=== PATIENT | female | born 1935 | race Caucasian/White ===

== ENCOUNTER → 2019-05-31 11:50 | Outpatient (CLI) | payer MEDICARE, OTHER ==
[~2019-05-31 11:50] MED LIST: ALPHAGAN 0.2%5 ML EACH EYE; CO Q-10100 MG PO; CROMOLYN S20 MG/2 ML; GLUCOSAMINE HC500 MG PO; K-TAB10 MEQ PO; LASIX40 MG PO; MOBIC7.5 MG PO; OXYBUTYNIN CHLOR5 MG PO; PEPCID AC20 MG PO
[2019-06-20 18:01] VITALS: BMI 24.6
== END | disposition home or self-care (01) ==
LOC: D.US 11:30
PROVIDERS: ATTEND Nurse Practitioner Adult Health
DX: M79.89 Other specified soft tissue disorders (principal)

== ENCOUNTER 2019-06-20 13:26 | Inpatient (IN) | payer MEDICARE, OTHER ==
[~2019-06-20] VITALS: Ht 154.9 cm; Wt 59.3 kg
--- NOTE | ~2019-06-20 | HEMODYNAMI ---
PATIENT:BIJAN BOWSER MEDICAL RECORD: [id number] : 35 LOCATION:[facility] D.2126 ADMISSION DATE: 06/20/19 Generatedon:06/21/201910:35 Patient name: BIJAN BOWSER Patient #: [id number] SSN: : 1935 Date of study: 06/21/2019 Page: Of Hemodynamic Procedure Report Patient Data Patient Demographics Procedure consent was obtained First Name: BIJAN Gender: Female Last Name: MAGUE : 1935 Patient #: [id number] Age: 84 year(s) Race: Unknown Additional ID: [id number] Contact details Address: [address] [place] [address] [address] State: [place] City: [place] Zip code: [address] Admission Admission Data Admission Date: 06/20/2019 Admission Time: 15:53 Room #: D.2126 Height (in.): 61 BSA: 1.57 (m2) Height (cm.): 154.94 BMI: 24.29 (kg/m2) Weight (lbs.): 128.57 Weight (kg.): 58.32 Lab Results Lab Result Date: 06/21/2019 Lab Result Time: 0:00 Biochemistry Name Units Result Min Max BUN mg/dl 18 --(---*)-- 7 18 CK-MB ng/ml 3.7 --(----)*- 0 3.6 Creatinine mg/dl 1.5 --(----)-* 0.6 1.3 eGFR ml/min 35 *-(----)-- 90 120 NONAFRICAN Troponin l ng/ml 0.716 --(----)-* 0 0.06 CBC Name Units Result Min Max Hemoglobin g/dl 11.7 *-(----)-- 13.5 17.5 Platelets 10^3/l 226 --(-*--)-- 130 400 Coagulation Name Units Result Min Max INR units 1.07 --(--*-)-- 0.85 1.17 Procedure Procedure Types Cath Procedure Diagnostic Procedure C [facility] w/Coronaries Procedure Description Procedure Date Procedure Date: 06/21/2019 Procedure Start Time: 10:14 Procedure End Time: 10:33 Procedure Staff Name Function Emmanuel Olvera RT Monitor Kishan Chambers RN Nurse Fortino Eason MD Performing Physician Catherine Serrano RT Scrub Procedure Data Cath Procedure Fluoroscopy Diagnostic fluoroscopy Total fluoroscopy Time: 3.3 time: 3.3 min min Diagnostic fluoroscopy Total fluoroscopy dose: 235 dose: 235 mGy mGy Contrast Material Contrast Material Type Amount (ml) Isovue 370 35 Entry Location Entry Primary Successful Side Size Upsize Upsize Entry Closure Carias ccessful Closure Location (Fr) 1 (Fr) 2 (Fr) Remarks Device Remarks Radial Right 6 Fr Mechanical artery Short Compression Femoral Right 5 Fr Exoseal artery Estimated blood loss: 5 ml Diagnostic catheters Device Type Used For End Catheter Placement DIAGNOSTIC Hartley 110cm 5 Procedure Fr catheter ([id number]) MULTIPACK Pigtail 5 Fr Procedure catheter MULTIPACK JL 4.0 5Fr Procedure catheter MULTIPACK 3DRC 5Fr Procedure catheter Procedure Complications No complications Procedure Medications Medication Administration Route Dosage Oxygen NC 2 l/min Heparin Flush Bag added to field 2 bags (1000units/500ml NS) Lidocaine 2% added to field 20 0.9% NaCl I.V. 100 ml/hr Radial Cocktail added to field 1 syringe (Verapamil 2mg/Nitro 400mcg/Heparin 1500units) Fentanyl I.V. 50 mcg Versed I.V. 1 mg Radial Cocktail I.A. 1 syringe (Verapamil 2mg/Nitro 400mcg/Heparin 1500units) Hemodynamics Rest BSA: 1.57 (m2) HGB: 11.7 (g/dl) O2 Consumption: Estimated: 133.71 (ml/min) O2 Co nsumption indexed: Estimated:85.17 (ml/min/m) Heart Rate: 60 (bpm) Snapshots Pre Cath Intra NCS Post Cath Vital Signs Time Heart Resp SPO2 etCO2 NIBP (mmHg) Rhythm Pain Sedation Rate (ipm) (%) (mmHg) Status Level (bpm) 10:02:12 37 17 95 0 135/76(103) NSR 0 (11) 10(A) , No pain 10:14:19 34 17 96 0 95/45(68) NSR 0 (11) 10(A) , No pain 10:18:33 35 17 98 0 86/37(65) NSR 0 (11) 9(A) , No pain 10:22:47 34 17 95 0 73/37(65) NSR 0 (11) 9(A) , No pain 10:26:53 33 17 96 0 88/36(65) NSR 0 (11) 9(A) , No pain 10:31:05 31 17 96 0 94/34(66) NSR 0 (11) 9(A) , No pain Medications Time Medication Route Dose Verified Delivered Reason Notes Effectiveness by by 9:58:59 Oxygen NC 2 l/min Fortino Holley Per Jenaro Chambers RN physician 9:59:07 Heparin Flush added 2 bags Fortino Holley used for Bag to Jenaro Chambers RN procedure (1000units/500ml field NS) 9:59:34 Lidocaine 2% added 20ml Fortino Holley for local to vial Jenaro Chambers RN anesthetic field 9:59:47 0.9% NaCl I.V. 100 Fortino Holley Per ml/hr Jenaro Chambers RN physician 9:59:56 Radial Cocktail added 1 Fortino Holley used for (Verapamil to syringe Jenaro Chambers RN procedure 2mg/Nitro field 400mcg/Hepari 10:13:58 Fentanyl I.V. 50 mcg Fortino Holley for sedation Jenaro Chambers RN 10:14:04 Versed I.V. 1 mg Fortino Holley for sedation Jenaro Chambers RN 10:15:54 Radial Cocktail I.A. 1 Fortino Freitas for (Verapamil syringe Jenaro Eason MD vasodilation 2mg/Nitro 400mcg/Hepari Procedure Log Time Note 9:30:08 Kishan Chambers RN sent for patient. Start room use. 9:37:09 Time tracking: Call back (After hours or weekends) 9:37:14 Plan of Care:Hemodynamics will remain stable., Cardiac rhythm will remain stable., Comfort level will be maintained., Respiratory function will remain adequate., Patient/ family verbilizes understanding of procedure., Procedure tolerated without complication., Recovers from procedure without complications.. 9:42:19 Risk of Mortality: 3 9:42:23 Risk of blood transfusion: 5.6 9:42:26 Risk of ALVARO: 9.1 9:42:33 Patient Height : 61 inches 9:42:38 Patient Weight : 128.57 lbs 9::55 Lab Result : Hemoglobin 11.7 g/dl ::55 Lab Result : eGFR NONAFRICAN 35 ml/min ::55 Lab Result : INR 1.07 units ::55 Lab Result : Platelets 226 10^3/l ::55 Lab Result : Creatinine 1.5 mg/dl :: Lab Result : BUN 18 mg/dl :: Lab Result : Troponin l 0.716 ng/ml :: Lab Result : CK-MB 3.7 ng/ml 9:44:02 Lab results completed and on chart. 9:45:43 ACC Patient presents with Non-STEMI CCS Anginal Class 3--Marked limitation of physical activity, angina occurs with ordinary activity.. 9:45:48 Procedure Status Urgent Heart Cath (IP). 9:46:01 ACCPatient has been prescribed/administered the following anti-anginal medication within the last 2 weeks: None 9:46:09 Patient received from PCU to CCL 1 Alert and oriented. Tansferred to table in Supine position. 9:48:59 3b) 30-44 Moderately reduced kidney function. 9:49:13 Maximum allowable contrast dose (3.7 X eGFR X 0.75)97 ml. 9:58:59 Oxygen 2 l/min NC was administered by Kishan Chambers RN; Per physician; Verbal order read back and verified. 9:59:07 Heparin Flush Bag (1000units/500ml NS) 2 bags added to field was administered by Kishan Chambers RN; used for procedure; Verbal order read back and verified. 9:59:34 Lidocaine 2% 20ml vial added to field was administered by Kishan Chambers RN; for local anesthetic; Verbal order read back and verified. 9:59:47 0.9% NaCl 100 ml/hr I.V. was administered by Kishan Chambers RN; Per physician; Verbal order read back and verified. 9:59:56 Radial Cocktail (Verapamil 2mg/Nitro 400mcg/Heparin 1500units) 1 syringe added to field was administered by Kishan Chambers RN; used for procedure; Verbal order read back and verified. 10:01:02 Vital chart was started 10:07:36 Signed procedure consent form obtained from guardian. 10:07:42 Correct patient and procedure confirmed by team. 10:07:42 Warm blankets applied, and jhonatan hugger turned on for patient comfort. 10:07:43 ECG and BP/O2 sat monitors applied to patient. 10:07:46 Baseline sample Acquired. 10:07:50 Rhythm: 3rd degree heart block 10:07:51 Full Disclosure recording started 10:07:56 Pre-procedure instructions explained to patient. 10:07:56 H&P Date Dictated: 06/20/2019 Within 30 days and on chart.. 10:12:00 Physician arrived 10:12:06 Pt unable to answer due mental disability. 10:12:10 Family in patients room. 10:12:12 Patient NPO since Midnight. 10:12:17 Is the patient allergic to Iodine/contrast media? No. 10:12:20 Is patient on blood thinner?Yes 10:12:57 ACC The patient was administered the following blood thiners within the last 24 hours: ACCPlavix 10:13:00 Patient diabetic? Unknown. 10:13:06 Pre procedure: right dorsailis pedis pulse 1+ Palpable, but thready & weak; easily obliterated 10:13:16 Modified Calin's test Ulnar < 7 seconds 10:13:20 Patient pain scale 0/10 ?. 10:13:26 IV patent on arrival in left forearm with 0.9% NaCl at KVO. 10:13:30 Final Timeout: patient, procedure, and site verified with staff and physician. All members of the team are in agreement. 10:13:30 --------ALL STOP TIME OUT------ 10:13:33 Right Radial & Right Groin site verified by team. 10:13:37 Fire Safety Assessment: A--An alcohol-based skin anteseptic being used preoperatively., C--Open oxygen or nitrous oxide is being used., D--An ESU, laser, or fiber-optic light is being used. 10:13:41 Physical assessment completed. ASA score P 3 - A patient with severe systemic disease as per Fortino Eason MD. 10:13:46 Sedation plan: IV Moderate Sedation Medication:Versed, Fentanyl 10:13:58 Fentanyl 50 mcg I.V. was administered by Kishan Chambers RN; for sedation; Verbal order read back and verified. 10:14:04 Versed 1 mg I.V. was administered by Kishan Chambers RN; for sedation; Verbal order read back and verified. 10:14:28 Use device set Radial Dx or PCI 10:14:30 ACIST Hand Control (40288) opened to sterile field. 10:14:30 Tegaderm 4 x 4 (1626W) opened to sterile field. 10:14:31 ACIST Manifold (70814) opened to sterile field. 10:14:32 Medline Cath Pack (QBLE94060) opened to sterile field. 10:14:32 ACIST Syringe (41812) opened to sterile field. 10:14:33 MBrace Wrist Support (146952453) opened to sterile field. 10:14:33 Bag Decanter (2002S) opened to sterile field. 10:14:35 EMERALD Guide Wire (085-315) opened to sterile field. 10:14:36 SHEATH 6FR RAIN (0249493) opened to sterile field. 10:14:43 Procedure started. 10:14:56 Local anesthetic to right radial artery with Lidocaine 2% by Fortino Eason MD.INITIAL ACCESS ONLY 10:15:13 A 6 Fr Short sheath was inserted into the Right Radial artery 10:15:19 A DIAGNOSTIC Hartley 110cm 5 Fr catheter (849976) was advanced over the wire and used for Procedure. 10:15:54 Radial Cocktail (Verapamil 2mg/Nitro 400mcg/Heparin 1500units) 1 syringe I.A. was administered by Fortino Eason MD; for vasodilation; Verbal order read back and verified. 10:16:00 IV Extension Set opened to sterile field. 10:18:18 Catheter removed. Unable to advance catheter into ascending Aorta due to pt anatomy. Moving to Femoral approach. 10:18:33 Use device set Multipack Set 10:18:35 DIAGNOSTIC Multipack 5Fr catheter set (YY7039) opened to sterile field. 10:18:35 SHEATH 5FR Randolph (XON671) opened to sterile field. 10:18:58 Local anesthetic to right femoral artery with Lidocaine 2% by Fortino Eason MD.ADDITIONAL ACCESS 10:19:54 A 5 Fr sheath was inserted into the Right Femoral artery 10:20:26 A MULTIPACK Pigtail 5 Fr catheter was advanced over the wire and used for Procedure. 10:20:56 LV gram done using JETT 10:21:02 EF : 25 % 10:21:07 Injector settings: Ml/sec: 10, Volume: 20, 10:21:11 Catheter removed. 10:21:16 A MULTIPACK JL 4.0 5Fr catheter was advanced over the wire and used for Procedure. 10:21:51 LCA angiography performed. 10:22:29 Catheter removed. 10:22:33 A MULTIPACK 3DRC 5Fr catheter was advanced over the wire and used for Procedure. 10:23:00 RCA angiography performed. 10:23:05 ACCDominant side:Left 10:23:06 Catheter removed. 10:23:08 EXOSEAL 5Fr (EX500) opened to sterile field. 10:23:31 Sheath removed intact; hemostasis achieved with Exoseal to the Right Femoral artery. 10:23:39 Procedure ended.(Physican Out) 10:24:15 Sharps counted by scrub and verified by R.N. 10:24:19 Insertion/operative site no bleeding no hematoma. 10:24:22 Post-op/insertion site Right Femoral artery dressed using a 4 x 4 and Tegaderm. 10:24:48 Sheath removed intact; hemostasis achieved with Mechanical Compression to the Right Radial artery. 10:24:59 Fluoroscopy time 03.30 minutes. 10:25:02 Fluoroscopy dose: 235 mGy 10:25:02 Flurop Dose total: 235 10:25:08 Dose Area Product 84675 mGy/cm. 10:25:13 Contrast amount:Isovue 370 35ml. 10:25:15 Maximum allowable dose exceeded? No. 10:25:19 Insertion/operative site no bleeding no hematoma. 10:25:24 Helmetta band inflated with 10cc of air. 10:25:28 Post Procedure Pulses reassessed and unchanged 10:25:32 Post-procedure physical assessment completed. ASA score P 3 - A patient with severe systemic disease as per Fortino Eason MD. 10:25:35 Post procedure rhythm: unchanged. 10:25:37 Estimated blood loss: 5 ml 10:25:40 Patient needs reinforcement of post procedure teaching. 10:27:05 Due to pt's mental disability unable to give post procedure instructions, will proceed to go over instructions with family and career services assistant. 10:27:08 Procedure and supply charges have been captured, reviewed, submitted and are correct. 10:27:12 Procedure Complication : No complications 10:27:32 ZEPHYR REGULAR TR BAND (957380) opened to sterile field. 10:28:34 [facility] Findings: mild to moderate CAD (<70%) 10:28:36 Operative report dictated upon procedure completion. 10:28:37 See physician's report for complete and final results. 10:33:28 Vital chart was stopped 10:33:31 Report given to PCU. 10:33:35 Patient transfered to PCU with Bed. 10:33:38 Full Disclosure recording stopped 10:33:38 Procedure ended. 10:33:47 End room use (Document Last) Device Usage Item Name Manufacture Quantity Catalog Hospital Part Current Minima l Lot# / Number Charge Number Stock Stock Serial# Code Tegaderm 4 3M 1 1626W 450064 845526 454471 5 x 4 (1626W) ACIST Hand Acist 1 78078 424937 239116 940561 5 Control Medical (55181) Systems Inc ACIST Acist 1 17884 753226 419109 779941 5 Manifold Medical (51233) Systems Inc ACIST Acist 1 50434 714997 607450 551886 20 Syringe Medical (25129) Systems Inc Medline Medline 1 [id number] 924230 82494 616273 5 Cath Pack ([id number]) Bag Microtek 1 2001S 711447 55633 675998 5 Decanter Medical Inc. () MBrace Advanced 1 140-0250-00 026020 09738 339917 5 Wrist Vascular Support Dynamics ([id number]) EMERALD Cardinal 1 502-455 079727 639083 014778 5 Guide Wire Health (802-455) SHEATH 6FR Cardinal 1 8088557 971819 4762785 573757 5 [facility] (1798154) DIAGNOSTIC Terumo 1 40-1959 361981 001977 209390 5 Hartley 110cm 5 Fr catheter (633527) IV Hospira 1 77289-13 878434 00535 411154 5 Extension Set SHEATH 5FR Terumo 1 QBA795 127828 079402 094281 5 Randolph (IRA103) DIAGNOSTIC Cardinal 1 TB4496 787103 75862 486455 30 Multipack Health 5Fr catheter set (HV4334) MULTIPACK Cardinal 1 915854 5 Pigtail 5 Health Fr catheter MULTIPACK Cardinal 1 147158 5 JL 4.0 5Fr Health catheter MULTIPACK Cardinal 1 890286 5 3DRC 5Fr Health catheter EXOSEAL 5Fr Cardinal 1 EX500 295046 527942 465550 10 (EX500) Health ZEPHYR Cardinal 1 985467 880173 2014586 201781 5 REGULAR TR Health BAND (343169) Signature Audit [place] Stage Time Signature Unsigned Intra-Procedure 06/21/2019 Emmanuel Olvera 10:34:40 AM RT(R) Intra-Procedure 06/21/2019 Kishan Chambers 10:35:08 AM RN Intra-Procedure 06/21/2019 Fortino Eason 10:35:36 AM [place] [id number] [place] [id number]
[2019-06-20 14:01] VITALS: BP 157/45
[2019-06-20 14:12] LABS: BASOPHILS 0.1 % (0-2); EOSINOPHILS 0.1 % (0-7); HEMATOCRIT 40.2 % (36.0-48.0); HEMOGLOBIN 13.1 g/dL (12-16); IMMATURE GRANULOCYTES 0.3 % (0-5); LYMPHOCYTES 10.2 % (15-50); MCH 31.2 pg (26.0-34.0); MCHC 32.6 g/dL (31.0-37.0); MCV 95.7 fL (80.0-100.0); MEAN PLATELET VOLUME 10.9 fL (7.4-10.4); MONOCYTES 5.8 % (2-11); NEUTROPHILS 83.5 % (40-80); PLATELET COUNT 262 10x3/uL (130-400); RDW 12.9 % (11.5-14.5); WBC 13.4 10x3/uL (4.8-10.8)
[2019-06-20 14:21] LABS: APTT 25.7 SECONDS (22.8-39.4); CALC OSMOLALITY 274 mosm/kg (275-300); CALCIUM 9.3 mg/dL (8.5-10.1); CARBON DIOXIDE 27.8 mmol/L (21.0-32.0); CHLORIDE - SERUM 100 mmol/L (98-107); CREATININE - SERUM 1.2 mg/dL (0.6-1.3); GLUCOSE 131 mg/dL (74-106); INR 1.07 (0.85-1.17); POTASSIUM - SERUM 4.9 mmol/L (3.5-5.1); PROTIME 13.4 SECONDS (11.6-15.0); SODIUM 136 mmol/L (136-145); UREA NITROGEN 15 mg/dL (7-18); eGFR NON AFRICAN AMERICAN 45 mL/min (90-120)
[2019-06-20 14:42] LABS: ALKALINE PHOSPHATASE 101 U/L (46-116); ALT (SGPT) 30 U/L (10-68); AMYLASE - SERUM 19 U/L (25-115); BILIRUBIN - TOTAL 0.59 mg/dL (0.2-1.3); CREATINE KINASE 68 UL (21-215); PROTEIN - SERUM 6.6 g/dL (6.4-8.2)
[2019-06-20 14:50] LABS: LIPASE 42 U/L (73-393); TROPONIN-I 0.368 ng/mL (0.000-0.060)
[2019-06-20 15:01] VITALS: BP 148/55
[2019-06-20] MEDS ORDERED: K-TAB10 MEQ PO (15:02)
[2019-06-20] MEDS ORDERED: MOBIC7.5 MG PO (15:02)
[2019-06-20] MEDS ORDERED: LASIX40 MG PO (15:02)
[2019-06-20] MEDS ORDERED: OXYBUTYNIN CHLOR5 MG PO (15:02)
[2019-06-20] MEDS ORDERED: PEPCID AC20 MG PO (15:03)
[2019-06-20] MEDS ORDERED: CROMOLYN S20 MG/2 ML (15:04)
[2019-06-20] MEDS ORDERED: GLUCOSAMINE HC500 MG PO (15:04)
[2019-06-20] MEDS ORDERED: ALPHAGAN 0.2%5 ML EACH EYE (15:04)
[2019-06-20] MEDS ORDERED: CO Q-10100 MG PO (15:05)
--- NOTE | 2019-06-20 16:17 | MORECARE ---
CASE MANAGEMENT DISCHARGE SUMMARY PATIENT: BIJAN BOWSER UNIT: [id number] ADM DATE: 06/20/19 AGE: 84 : 35 SEX: F ROOM/BED: D.0487 AUTHOR: LUZ,DOC PHYSICIAN: REFERRING PHYSICIAN: ZIGGY DE LUNA MD DATE OF SERVICE: 06/20/19 Discharge Plan Patient Name: BIJAN BOWSER Facility: [facility]:[place] : 1935 Planned Disposition: Anticipated Discharge Date: Discharge Date: Expected LOS: Initial Reviewer: [email or web address] Initial Review Date: 06/20/2019 Generated: 06/20/19 5:17 pm DCP- Discharge Planning Updated by [email or web address]: Chloe Barajas on 06/20/19 3:[address] CM met with patient to explain and discuss initial discharge planning. Patient is in agreement to proceed with assessment. Patient is alert/oriented. Patient is her own POA. Stairs/steps: None. PCP: Marguerite Box APRN. Pharmacy: [facility] and has been able to purchase all her needed meds. HHS: None. DME: Cane, odalys, w/c, shower chair. Patient lives alone in an apartment complex, sponsored by [facility]. Patient has 24/7 caregivers available. [facility] Step CM is, Lucina #[phone]. Patient gives permission to speak with family members/care givers. Emergency contact: [facility], #[phone] for transportation home. Dependent on assist for ADL's. Patient denies being hospitalized within the past 30 days. Denies use of community resources MEDICAL LANGUAGE SPECIALIST. Transportation at time of discharge: contact [facility] office #[phone]. CM will follow and assist with dc needs/plans PRN. Coverage Notice Reviewer: [email or web address] - Chloe Barajas Notice Issued Date-Time: 06/20/2019 15:30 Notice Type: Medicare Outpatient Observation Notice Notice Delivered To: Patient Relationship to Patient: Self Head End Desizing Machine Operator Name: H.H. Delivery Method: HAND - Hand Delivered Gail Days: Prior Verbal Notification: Recipient Understood Notice: Recipient Signature: Yes Med Rec Note Co-signed by Attending: Coverage Notice Comment: ESCALONA delivered, explained to and signed by patient. Patient Name: BIJAN BOWSER Page [phone] at 1617 All edits/amendments must be made on the electronic document DICTATION DATE: 06/20/191616 FINANCE EXECUTIVE: HASEEB 06/20/191616 RPT#: [id number] DC DATE: STATUS: ADM IN [facility] [address] [place] [address] END OF REPORT
--- NOTE | 2019-06-20 16:17 | NUR ---
REPORT CALLED TO FRED BROOKS AT 1615. BED 2126 ASSIGNED AT 1545, ROOM DIRTY AT THIS TIME. WILL TRANSPORT PT TO ASSIGNED ROOM WHEN READY.
[2019-06-20 16:33] VITALS: BP 133/82
[2019-06-20 18:01] VITALS: BP 130/47; Ht 154.9 cm; Wt 59.3 kg
--- NOTE | 2019-06-20 18:40 | NUR ---
NOTIFIED BY RAPID OUTSOLE STITCHER THAT PT IS IN 3RD DEGREE BLOCK WITH RATE OF 35. PT IS ASYMPTOMATIC, NOTIFIED DR. EVANS, WHO STATED THAT HE WAS ALREADY AWARE AND THAT PT HAS BEEN DOING THIS. NO NEW ORDERS AT THIS TIME.
--- NOTE | 2019-06-20 19:30 | NUR ---
PT RESTING IN BED ALERT AND ORIENTED X4. PT ON TELEMETRY RUNNING 37. PT REQUESTED ICE CREAM AND SPRITE. NO S/S OF DISTRESS AT THIS TIME. PT BP 120/50. PT DENIES ANYPAIN OR FURTHER NEEDS. BED LOW CALL LIGHT WITHIN REACH. WILL CONTINUE TO MONITOR.
[2019-06-20 20:00] VITALS: BP 120/50
[2019-06-20 21:38] LABS: CREATINE KINASE 69 UL (21-215)
[2019-06-20 21:40] LABS: TROPONIN-I 0.902 ng/mL (0.000-0.060)
[2019-06-21] VITALS: BP 120/54
--- NOTE | 2019-06-21 02:18 | NUR ---
I have reviewed this patient and I concur with the Shift Assessment completed by the Licensed Practical Nurse today this shift.
[2019-06-21 03:45] LABS: BASOPHILS 0 % (0-2); EOSINOPHILS 0.9 % (0-7); HEMATOCRIT 35.8 % (36.0-48.0); HEMOGLOBIN 11.7 g/dL (12-16); IMMATURE GRANULOCYTES 0.2 % (0-5); LYMPHOCYTES 21.9 % (15-50); MCH 31.5 pg (26.0-34.0); MCHC 32.7 g/dL (31.0-37.0); MCV 96.5 fL (80.0-100.0); MEAN PLATELET VOLUME 11.2 fL (7.4-10.4); MONOCYTES 9.9 % (2-11); NEUTROPHILS 67.1 % (40-80); PLATELET COUNT 226 10x3/uL (130-400); RBC 3.71 10x6/uL (4.00-5.40); RDW 12.9 % (11.5-14.5)
[2019-06-21 04:00] VITALS: BP 122/66
[2019-06-21 04:23] LABS: ALBUMIN 2.6 g/dL (3.4-5.0); ALKALINE PHOSPHATASE 82 U/L (46-116); ALT (SGPT) 27 U/L (10-68); BILIRUBIN - TOTAL 0.55 mg/dL (0.2-1.3); CALC OSMOLALITY 276 mosm/kg (275-300); CALCIUM 8.7 mg/dL (8.5-10.1); CARBON DIOXIDE 28.2 mmol/L (21.0-32.0); CHLORIDE - SERUM 102 mmol/L (98-107); CKMB 3.7 U/L (0.0-3.6); CREATINE KINASE 62 UL (21-215); CREATININE - SERUM 1.5 mg/dL (0.6-1.3); GLUCOSE 108 mg/dL (74-106); POTASSIUM - SERUM 4.5 mmol/L (3.5-5.1); PROTEIN - SERUM 5.7 g/dL (6.4-8.2); SODIUM 137 mmol/L (136-145); TROPONIN-I 0.716 ng/mL (0.000-0.060); UREA NITROGEN 18 mg/dL (7-18); eGFR NON AFRICAN AMERICAN 35 mL/min (90-120)
--- NOTE | 2019-06-21 07:17 | NUR ---
PT AWAKE AND ORIENTED, LYING IN BED WATCHING TV. NEED CONSENTS SIGNED BUT HAVE TO WAIT FOR CAREGIVER TO ARRIVE, NO COMPLAINTS OR CONCERNS, DOES STATE SHE IS HUNGRY BUT I EXPLAINED SHE HAS TO WAIT FOR HER PROCEDURE. PT WAS UNHAPPY, BUT STATES HER UNDERSTANDING. ALL QUESTIONS ANSWERED TO THE BEST OF MY ABILITY. NO FAMILY PRESENT AT THIS TIME. CL IN REACH, SRX2.
--- NOTE | 2019-06-21 08:11 | NUR ---
CHANGED TO YELLOW GOWN, PLACED FALL BRACELET ON.
--- NOTE | 2019-06-21 08:35 | NUR ---
I CONCUR WITH ELECTRICAL PANEL BUILDER ASSESSMENT OF THIS PATIENT.
--- NOTE | 2019-06-21 08:55 | NUR ---
PT SIGNS AND USES WRITING BOARD FOR COMMUNICATION, STATES SHE'S IN NO PAIN AT THIS TIME, UP FOR BREAKFAST NOW. NO COMPLAINTS OR CONCERNS ALL QUESTIONS ANSWERED TO THE BEST OF MY ABILITY. CL IN REACH, SRX2, SET UP ASSIST ON TRAY.
--- NOTE | 2019-06-21 09:14 | NUR ---
MADE MULTIPLE ATTEMTPS TO CALL FOR CONSENTS TO BE SIGNED, AT THSI TIME HAVE NOT HEARD BACK,
[2019-06-21 09:25] VITALS: BP 136/45
--- NOTE | 2019-06-21 09:46 | NUR ---
PT ESCORTED TO CARTON LETTERING MACHINE OPERATOR. HEART MONITOR ON.
--- NOTE | 2019-06-21 10:59 | NUR ---
PT BACK FROM PLASMA CENTER NURSE, SLEEPING BUT EASILY ROUSABLE. CAREGIVER IN ROOM. CL IN REACH, SRX2
--- NOTE | 2019-06-21 11:54 | NUR ---
MIGUEL ANGEL: CAREGIVER STATES SHE WILL BE THE [employer] RESPONSIBLE FOR DRIVING PT HOME IN AM.
[2019-06-21 13:08] VITALS: BP 100/41
--- NOTE | 2019-06-21 14:16 | NUR ---
PT AWAKE AND ORIENTED, EATING HER LUNCH. CAREGIVER BACK AT BEDSIDE. TR BAND NOT BLEEDING, WILL BEGIN LETTING AIR OUT SOON. RIGHT GROIN DRESSING C/D/I. NO COMPLAINTS OR CONCERNS AT TIS TIME, CL IN REACH, SRX2.
[2019-06-21 16:00] VITALS: BP 106/40
--- NOTE | 2019-06-21 16:34 | NUR ---
PT WAS WET, LARGE WET SPOT ON BAD, CLEANED AND DRIED. PTS LEFT HAND I/V IS INFILTRATED, PT WILL NOT ALLOW ME TO REMOVE IT AT THIS TIME. TR BAND OFF WITHOUT DIFFICULTY. CL IN REACH, SRX2, NO CAREGIVER PRESENT AT THIS TIME. PT IS CLEAN AND DRYREADY FOR SUPPER
--- NOTE | 2019-06-21 18:28 | NUR ---
PT HAD SOAKED BED IN URINE, LINNENS CHANGED AND PT NOW CLEAN AND DRY. REMOVED LH INFILTRATED IV. PT TENDS TO SCREAM WHENEVER SHE'S TOUCHED OR MOVED BUT IS FINE AT ANY OTHER POINT. CAREGIVER STATES THIS IS HER NORMAL. PT HAS BEEN SINGING LOUDLY AND STATES SHE IS HAPPY TO GO HOME TOMORROW. CL IN REACH, SRX2, BED LOW AND LOCKED, BED ALARM ON, CAREGIVER AT BEDSIDE.
--- NOTE | 2019-06-21 19:20 | NUR ---
PT RESTING IN BED ALERT AND ORIENTED X3. RUNNING TELE-34. PT LINEN AND PADS CHANGED. NO S/S OF DISTRESS AT THIS TIME.PT DENIES ANY PAIN OR NEEDS AT THIS TIME. BED LOW CALL LIGHT WITHIN REACH. WILL CONTINUE TO MONITOR.
[2019-06-21 19:30] LABS: BASOPHILS 0.2 % (0-2); EOSINOPHILS 1.5 % (0-7); HEMATOCRIT 32.9 % (36.0-48.0); HEMOGLOBIN 10.6 g/dL (12-16); IMMATURE GRANULOCYTES 0.1 % (0-5); LYMPHOCYTES 26.7 % (15-50); MCH 31.4 pg (26.0-34.0); MCHC 32.2 g/dL (31.0-37.0); MCV 97.3 fL (80.0-100.0); MEAN PLATELET VOLUME 10.9 fL (7.4-10.4); MONOCYTES 10.2 % (2-11); NEUTROPHILS 61.3 % (40-80); PLATELET COUNT 194 10x3/uL (130-400); RBC 3.38 10x6/uL (4.00-5.40); RDW 13.1 % (11.5-14.5); WBC 8.1 10x3/uL (4.8-10.8)
[2019-06-21 19:52] LABS: CALCIUM 8.2 mg/dL (8.5-10.1); CREATININE - SERUM 1.7 mg/dL (0.6-1.3)
[2019-06-22] VITALS: BP 112/45
--- NOTE | 2019-06-22 01:34 | NUR ---
PT RESTING IN BED WITH EYES CLOSED. RR EVEN AND UNLABORED. NO S/S OF DISTRESS AT THIS TIME. BED LOW CALL LIGHT WITHIN REACH. WILL CONTINUE TO MONITOR.
--- NOTE | 2019-06-22 02:44 | NUR ---
I have reviewed this patient and I concur with the Shift Assessment completed by the Licensed Practical Nurse today this shift.
[2019-06-22 04:00] VITALS: BP 111/36
[2019-06-22 05:35] LABS: BASOPHILS 0.1 % (0-2); EOSINOPHILS 2.3 % (0-7); HEMATOCRIT 33.2 % (36.0-48.0); HEMOGLOBIN 10.6 g/dL (12-16); IMMATURE GRANULOCYTES 0.3 % (0-5); LYMPHOCYTES 30.4 % (15-50); MCH 31.2 pg (26.0-34.0); MCHC 31.9 g/dL (31.0-37.0); MCV 97.6 fL (80.0-100.0); MEAN PLATELET VOLUME 11.2 fL (7.4-10.4); MONOCYTES 9.8 % (2-11); NEUTROPHILS 57.1 % (40-80); PLATELET COUNT 173 10x3/uL (130-400); RDW 13.1 % (11.5-14.5); WBC 7.3 10x3/uL (4.8-10.8)
[2019-06-22 05:55] LABS: ALBUMIN 2.4 g/dL (3.4-5.0); BILIRUBIN - TOTAL 0.42 mg/dL (0.2-1.3); CALCIUM 8.7 mg/dL (8.5-10.1); CARBON DIOXIDE 28.4 mmol/L (21.0-32.0); CREATININE - SERUM 1.6 mg/dL (0.6-1.3); POTASSIUM - SERUM 4.4 mmol/L (3.5-5.1); PROTEIN - SERUM 5.3 g/dL (6.4-8.2)
--- NOTE | 2019-06-22 07:26 | NUR ---
REPORT RECEIVED. WILL CONTINUE WITH POC. PT CURRENTLY LYING SEMI FOWLERS. CALL LIGHT W/I REACH. PT IS AAO AND BEDFAST. RR EVEN AND UNLABORED ON 2L 02. NO PIV NOTED. PT DENIES ANY NEEDS AT THIS TIME. NO S/S OF DISTRESS NOTED. WILL CTM.
[2019-06-22 08:50] VITALS: BP 144/65
--- NOTE | 2019-06-22 09:32 | NUR ---
PT HAD EPISODE OF URINARY INCONTINENCE. PT CLEANED AND NEW LINEN APPLIED. PT DENIES ANY NEEDS. WILL CTM.
--- NOTE | 2019-06-22 11:09 | MORECARE ---
CASE MANAGEMENT DISCHARGE SUMMARY PATIENT: BIJAN BOWSER UNIT: [id number] ADM DATE: 06/21/19 AGE: 84 : 35 SEX: F ROOM/BED: D.3223 AUTHOR: LUZ,DOC PHYSICIAN: REFERRING PHYSICIAN: ZIGGY DE LUNA MD DATE OF SERVICE: 06/22/19 Discharge Plan Patient Name: BIJAN BOWSER Facility: [facility]:[place] : 1935 Planned Disposition: Home with Home Health Anticipated Discharge Date: 06/22/19 Discharge Date: Expected LOS: 1 Initial Reviewer: [email or web address] Initial Review Date: 06/20/2019 Generated: 06/22/19 12:09 pm DCP- Discharge Planning Updated by [email or web address]: Chloe Barajas on 06/20/19 3:[address] CM met with patient to explain and discuss initial discharge planning. Patient is in agreement to proceed with assessment. Patient is alert/oriented. Patient is her own POA. Stairs/steps: None. PCP: Marguerite Box APRN. Pharmacy: [facility] and has been able to purchase all her needed meds. HHS: None. DME: odalys Kumar, w/c, shower chair. Patient lives alone in an apartment complex, sponsored by [facility]. Patient has 24/7 caregivers available. [facility] Step CM is, Lucina #[phone]. Patient gives permission to speak with family members/care givers. Emergency contact: [facility] office, #[phone] for transportation home. Dependent on assist for ADL's. Patient denies being hospitalized within the past 30 days. Denies use of community resources BLENDER MACHINE OPERATOR. Transportation at time of discharge: contact [facility] office #[phone]. CM will follow and assist with dc needs/plans PRN. Coverage Notice Reviewer: [email or web address] - Chloe Barajas Notice Issued Date-Time: 06/20/2019 15:30 Notice Type: Medicare Outpatient Observation Notice Notice Delivered To: Patient Relationship to Patient: Self Lumber Hacker Name: H.H. Delivery Method: HAND - Hand Delivered Gail Days: Prior Verbal Notification: Recipient Understood Notice: Recipient Signature: Yes Med Rec Note Co-signed by Attending: Coverage Notice Comment: ESCALONA delivered, explained to and signed by patient. Reviewer: [id number] - Collin Munguia Notice Issued Date-Time: 06/22/2019 10:45 Notice Type: IM Discharge Notice Notice Delivered To: Patient Relationship to Patient: Lumber Hacker Name: Delivery Method: HAND - Hand Delivered Gail Days: Prior Verbal Notification: Recipient Understood Notice: Yes Recipient Signature: Yes Med Rec Note Co-signed by Attending: Coverage Notice Comment: Last DP export: 06/20/19 3:17 Patient Name: BIJAN BOWSER Page [id number] at 1109 All edits/amendments must be made on the electronic document DICTATION DATE: 06/22/191108 MINCING MACHINE OPERATOR: HASEEB 06/22/19 1109 RPT#: [id number] DC DATE: STATUS: ADM IN [facility] [address] [place] [address] END OF REPORT
--- NOTE | 2019-06-22 11:17 | MORECARE ---
CASE MANAGEMENT DISCHARGE SUMMARY PATIENT: BIJAN BOWSER UNIT: [id number] ADM DATE: 06/21/19 AGE: 84 : 35 SEX: F ROOM/BED: D.5645 AUTHOR: LUZ,DOC PHYSICIAN: REFERRING PHYSICIAN: ZIGGY DE LUNA MD DATE OF SERVICE: 06/22/19 Discharge Plan Patient Name: BIJAN BOWSER Facility: [facility]:[place] : 1935 Planned Disposition: Home with Home Health Anticipated Discharge Date: 06/22/19 Discharge Date: Expected LOS: 1 Initial Reviewer: [email or web address] Initial Review Date: 06/20/2019 Generated: 06/22/19 12:17 pm DCP- Discharge Planning Updated by [email or web address]: Chloe Barajas on 06/20/19 3:[address] CM met with patient to explain and discuss initial discharge planning. Patient is in agreement to proceed with assessment. Patient is alert/oriented. Patient is her own POA. Stairs/steps: None. PCP: Marguerite Box APRN. Pharmacy: [facility] and has been able to purchase all her needed meds. HHS: None. DME: Cane, walker, w/c, shower chair. Patient lives alone in an apartment complex, sponsored by [facility]. Patient has 24/7 caregivers available. [facility] Step CM is, Lucina #[phone]. Patient gives permission to speak with family members/care givers. Emergency contact: [facility] office, #[phone] for transportation home. Dependent on assist for ADL's. Patient denies being hospitalized within the past 30 days. Denies use of community resources HOME CARE ADMINISTRATOR. Transportation at time of discharge: contact [facility] office #[phone]. CM will follow and assist with dc needs/plans PRN. External Providers External Provider: [facility] Next Contact Date: 06/22/2019 Service Request Date: Service Type: Resolution: Reviewer: Comments: Coverage Notice Reviewer: [email or web address] Maverick Barajas Notice Issued Date-Time: 06/20/2019 15:30 Notice Type: Medicare Outpatient Observation Notice Notice Delivered To: Patient Relationship to Patient: Self Fire Sprinkler Designer Name: H.H. Delivery Method: HAND - Hand Delivered Gail Days: Prior Verbal Notification: Recipient Understood Notice: Recipient Signature: Yes Med Rec Note Co-signed by Attending: Coverage Notice Comment: ESCALONA delivered, explained to and signed by patient. Reviewer: [id number] Maverick Munguia Notice Issued Date-Time: 06/22/2019 10:45 Notice Type: IM Discharge Notice Notice Delivered To: Patient Relationship to Patient: Fire Sprinkler Designer Name: Delivery Method: HAND - Hand Delivered Gail Days: Prior Verbal Notification: Recipient Understood Notice: Yes Recipient Signature: Yes Med Rec Note Co-signed by Attending: Coverage Notice Comment: Reviewer: [id number] Maverick Munguia Notice Issued Date-Time: 06/22/2019 10:45 Notice Type: Patient Choice Letter Notice Delivered To: Patient Relationship to Patient: Fire Sprinkler Designer Name: Delivery Method: HAND - Hand Delivered Gail Days: Prior Verbal Notification: Recipient Understood Notice: Yes Recipient Signature: Yes Med Rec Note Co-signed by Attending: Coverage Notice Comment: [facility] Last DP export: 06/22/19 10:09 Patient Name: BIJAN BOWSER Page [phone] at 1117 All edits/amendments must be made on the electronic document DICTATION DATE: 06/22/19 111 PARENT COACH: HASEEB 06/22/19 111 RPT#: [id number] DC DATE: STATUS: ADM IN [facility] [address] [place] [address] END OF REPORT
--- NOTE | 2019-06-22 11:32 | MORECARE ---
CASE MANAGEMENT DISCHARGE SUMMARY PATIENT: BIJAN BOWSER UNIT: [id number] ADM DATE: 06/21/19 AGE: 84 : 35 SEX: F ROOM/BED: D.4874 AUTHOR: LUZ,DOC PHYSICIAN: REFERRING PHYSICIAN: ZIGGY DE LUNA MD DATE OF SERVICE: 06/22/19 Discharge Plan Patient Name: BIJAN BOWSER Facility: [facility]:[place] : 1935 Planned Disposition: Home with Home Health Anticipated Discharge Date: 06/22/19 Discharge Date: Expected LOS: 1 Initial Reviewer: [email or web address] Initial Review Date: 06/20/2019 Generated: 06/22/19 12:31 pm Comments DCP- Discharge Planning Updated by [email or web address]: Collin Munguia on 06/22/19 10:[address] Patient Name: BIJAN BOWSER Admission Status: ER Accout number: [id number] Admission Date: 06-21-2019 : 1935 Admission Diagnosis: Attending: CHETNA Current LOS: 1 Anticipated DC Date: 06-22-2019 Planned Disposition: Home with Home Health Primary Insurance: MEDICARE A & B PLANNED EXTERNAL PROVIDER: [employer] [facility] Discharge Planning Comments: CM RECEIVED ORDER FOR DISCHARGE PLANNING FOR 06-22-19 WITH COMFORT CARE. CM MET WITH PT AND TWO CAREGIVERS IN ROOM (MIGUEL ANGELKimberley EID AND DONNA). PT PROVIDED PERMISSION TO DISCUSS HER CARE AND DISCHARGE PLANNING WITH CAREGIVERS STATING THAT MIGUEL ANGEL TAKES CARE OF PT'S BUSINESS FOR HER. CM DISCUSSED ORDER FOR COMFORT CARE. PT STATES SHE IS HAPPY WITH HER HOME HEALTH SERVICES AND WANTS THEM RESUMED AND PT STILL WANTS TO TRY THERAPY AT HOME. CHOICE SIGNED FOR [employer]. IMPORTANT MESSAGE FROM MEDICARE PROVIDED AND DISCUSSED. PT AND CAREGIVERS DECLINE FURTHER NEEDS FOR DISCHARGE. MIGUEL ANGEL REPORTS THAT THEY HAVE TRIED TO GET PT A HOSPITAL BED AND IT WAS DECLINED BY PT'S [employer] INSURANCE. MIGUEL ANGEL REPORTS THEY HAVE A VAN TO TRANSPORT PT HOME TODAY AND WILL BE PROVIDING 24 HOUR A DAY, 7 DAY PER WEEK CARE TO PT THROUGH [facility]. CM CALLED [employer], , SPOKE TO BARBARA, REFERRAL PROVIDED, PT PLACED ON SCHEDULE FOR RESUMPTION. CM FAXED REFERRAL AND DISCHARGE INFORMATION TO [employer] AT [phone]. BARBARA ADVISED THEY WILL EVALUATE FOR RESUMPTION AND IF NOT APPROPRIATE, WILL REFER PT TO APPROPRIATE SERVICES. LARA AMAYA NOTIFIED. BEDSIDE NURSE NOTIFIED. CORE BAKER NURSE NOTIFIED. Green Chain Marker: Collin Munguia DCP- Discharge Planning Updated by [id number]: Chloe Barajas on 06/20/19 3:[address] CM met with patient to explain and discuss initial discharge planning. Patient is in agreement to proceed with assessment. Patient is alert/oriented. Patient is her own POA. Stairs/steps: None. PCP: Marguerite Box APRN. Pharmacy: [facility] and has been able to purchase all her needed meds. HHS: None. DME: Cankatherine walker, w/c, shower chair. Patient lives alone in an apartment complex, sponsored by [facility]. Patient has / caregivers available. [facility] Step CM is, Lucina #[phone]. Patient gives permission to speak with family members/care givers. Emergency contact: [facility] office, #[phone] for transportation home. Dependent on assist for ADL's. Patient denies being hospitalized within the past 30 days. Denies use of community resources PRESCRIPTION BENEFIT SPECIALIST. Transportation at time of discharge: contact [facility] office #[phone]. CM will follow and assist with dc needs/plans PRN. Coverage Notice Reviewer: [id number] Maverick Chloesarah Barajas Notice Issued Date-Time: 06/20/2019 15:30 Notice Type: Medicare Outpatient Observation Notice Notice Delivered To: Patient Relationship to Patient: Self Semiconductor Dies Loader Name: H.H. Delivery Method: HAND - Hand Delivered Gail Days: Prior Verbal Notification: Recipient Understood Notice: Recipient Signature: Yes Med Rec Note Co-signed by Attending: Coverage Notice Comment: ESCALONA delivered, explained to and signed by patient. Reviewer: [id number] Maverick Munguia Notice Issued Date-Time: 06/22/2019 10:45 Notice Type: IM Discharge Notice Notice Delivered To: Patient Relationship to Patient: Semiconductor Dies Loader Name: Delivery Method: HAND - Hand Delivered Gail Days: Prior Verbal Notification: Recipient Understood Notice: Yes Recipient Signature: Yes Med Rec Note Co-signed by Attending: Coverage Notice Comment: Reviewer: [id number] Maverick Munguia Notice Issued Date-Time: 06/22/2019 10:45 Notice Type: Patient Choice Letter Notice Delivered To: Patient Relationship to Patient: Semiconductor Dies Loader Name: Delivery Method: HAND - Hand Delivered Gail Days: Prior Verbal Notification: Recipient Understood Notice: Yes Recipient Signature: Yes Med Rec Note Co-signed by Attending: Coverage Notice Comment: [facility] Last DP export: 06/22/19 10:17 Patient Name: BIJAN BOWSER Page [phone] at 1132 All edits/amendments must be made on the electronic document DICTATION DATE: 06/22/19 1131 EXTERMINATOR HELPER: HASEEB 06/22/19 1131 RPT#: [id number] DC DATE: STATUS: ADM IN [facility] [address] [place] [address] END OF REPORT
--- NOTE | 2019-06-22 12:09 | NUR ---
DR EVANS PAGED TO NSTEMI AND NEEDING DISCHARGE MEDS. AWAITING CALL BACK. 1212-DR EVANS TO CALL BACK WITH NO NEW ORDERS FOR MEDS. STATES NO CORONARY DX.
--- NOTE | 2019-06-22 12:47 | MORECARE ---
CASE MANAGEMENT DISCHARGE SUMMARY PATIENT: BIJAN BOWSER UNIT: [id number] ADM DATE: 06/21/19 AGE: 84 : 35 SEX: F ROOM/BED: D.7865 AUTHOR: LUZ,DOC PHYSICIAN: REFERRING PHYSICIAN: ZIGGY DE LUNA MD DATE OF SERVICE: 06/22/19 Discharge Plan Patient Name: BIJAN BOWSER Facility: [facility]:[place] : 1935 Planned Disposition: Home with Home Health Anticipated Discharge Date: 06/22/19 Discharge Date: Expected LOS: 1 Initial Reviewer: [id number] Initial Review Date: 06/20/2019 Generated: 06/22/19 1:47 pm Comments DCP- Discharge Planning Updated by [email or web address]: Marybel Alegre on 06/22/19 11:[address] Patient Name: BIJAN BOWSER Admission Status: ER Accout number: [id number] Admission Date: 06-21-2019 : 1935 Admission Diagnosis: Attending: CHETNA Current LOS: 1 Anticipated DC Date: 06-22-2019 Planned Disposition: Home with Home Health Primary Insurance: MEDICARE A & B PLANNED EXTERNAL PROVIDER: [facility] Discharge Planning Comments: CM RECEIVED ORDER FOR DISCHARGE PLANNING FOR 06-22-19 WITH COMFORT CARE. CM MET WITH PT AND TWO CAREGIVERS IN ROOM (MIGUEL ANGELKimberley EID AND DONNA). PT PROVIDED PERMISSION TO DISCUSS HER CARE AND DISCHARGE PLANNING WITH CAREGIVERS STATING THAT MIGUEL ANGEL TAKES CARE OF PT'S BUSINESS FOR HER. CM DISCUSSED ORDER FOR COMFORT CARE. PT STATES SHE IS HAPPY WITH HER HOME HEALTH SERVICES AND WANTS THEM RESUMED AND PT STILL WANTS TO TRY THERAPY AT HOME. CHOICE SIGNED FOR [employer]. IMPORTANT MESSAGE FROM MEDICARE PROVIDED AND DISCUSSED. PT AND CAREGIVERS DECLINE FURTHER NEEDS FOR DISCHARGE. MIGUEL ANGEL REPORTS THAT THEY HAVE TRIED TO GET PT A HOSPITAL BED AND IT WAS DECLINED BY PT'S [employer] INSURANCE. MIGUEL ANGEL REPORTS THEY HAVE A VAN TO TRANSPORT PT HOME TODAY AND WILL BE PROVIDING 24 HOUR A DAY, 7 DAY PER WEEK CARE TO PT THROUGH [facility]. CM CALLED [employer], , SPOKE TO BARBARA, REFERRAL PROVIDED, PT PLACED ON SCHEDULE FOR RESUMPTION. CM FAXED REFERRAL AND DISCHARGE INFORMATION TO [employer] AT [phone]. BARBARA ADVISED THEY WILL EVALUATE FOR RESUMPTION AND IF NOT APPROPRIATE, WILL REFER PT TO APPROPRIATE SERVICES. LARA AMAYA NOTIFIED. BEDSIDE NURSE NOTIFIED. NUCLEAR MEDICINE SUPERVISOR NURSE NOTIFIED. Credit Department Manager: Marybel Alegre Appended by Marybel Alegre on 06/22/2019 12:46 SILVERWARE WASHER: CM RECEIVED CALL FROM BARBARA OF [facility], THEY HAVE EVALUATED RECORDS AND FEEL PT MORE APPROPRIATE FOR HOSPICE, THEY HAVE SENT REFERRAL TO [facility], [facility] WILL REACH OUT TO PT AND OFFER HOSPICE AND INFORM PT THAT THEY CAN STILL PROVIDE PHYSICAL THERAPY IF PT DESIRES. [facility] OF [facility] WILL CALL PT TODAY. MARYBEL ALEGRE, CASE MANAGEMENT DCP- Discharge Planning Updated by [id number]: Chloe Barajas on 06/20/19 3:[address] CM met with patient to explain and discuss initial discharge planning. Patient is in agreement to proceed with assessment. Patient is alert/oriented. Patient is her own POA. Stairs/steps: None. PCP: Marguerite Box APRN. Pharmacy: [facility] and has been able to purchase all her needed meds. HHS: None. DME: Cane, walker, w/c, shower chair. Patient lives alone in an apartment complex, sponsored by [facility]. Patient has 24/7 caregivers available. [facility] Step CM is, Lucina #[phone]. Patient gives permission to speak with family members/care givers. Emergency contact: [facility] office, #[phone] for transportation home. Dependent on assist for ADL's. Patient denies being hospitalized within the past 30 days. Denies use of community resources PAPER WOOD CUTTER. Transportation at time of discharge: contact [facility] office #[phone]. CM will follow and assist with dc needs/plans PRN. Coverage Notice Reviewer: [id number] - Chloe Barajas Notice Issued Date-Time: 06/20/2019 15:30 Notice Type: Medicare Outpatient Observation Notice Notice Delivered To: Patient Relationship to Patient: Self Body Shop Floorperson Name: H.H. Delivery Method: HAND - Hand Delivered Gail Days: Prior Verbal Notification: Recipient Understood Notice: Recipient Signature: Yes Med Rec Note Co-signed by Attending: Coverage Notice Comment: ESCALONA delivered, explained to and signed by patient. Reviewer: [id number] Maverick Alegre Notice Issued Date-Time: 06/22/2019 10:45 Notice Type: IM Discharge Notice Notice Delivered To: Patient Relationship to Patient: Body Shop Floorperson Name: Delivery Method: HAND - Hand Delivered Gail Days: Prior Verbal Notification: Recipient Understood Notice: Yes Recipient Signature: Yes Med Rec Note Co-signed by Attending: Coverage Notice Comment: Reviewer: [id number] Alegre Notice Issued Date-Time: 06/22/2019 10:45 Notice Type: Patient Choice Letter Notice Delivered To: Patient Relationship to Patient: Body Shop Floorperson Name: Delivery Method: HAND - Hand Delivered Gail Days: Prior Verbal Notification: Recipient Understood Notice: Yes Recipient Signature: Yes Med Rec Note Co-signed by Attending: Coverage Notice Comment: [facility] Last DP export: 06/22/19 10:32 Patient Name: BIJAN BOWSER Page [phone] at 1247 All edits/amendments must be made on the electronic document DICTATION DATE: 06/22/19 1247 SYSTEM AUDITOR: HASEEB 06/22/19 1247 RPT#: [id number] DC DATE: STATUS: ADM IN [facility] [address] [place] [address] END OF REPORT
--- NOTE | 2019-06-22 12:59 | NUR ---
PT DISCHARGED HOME VIA WHEELCHAIR WITH FAMILY. PT SIGNED PROPER DISCHARGE INSTRUCTIONS AND REMOVED ALL VALUABLES FROM THE ROOM. TELEMETRY REMOVED AND RETURNED.
--- NOTE | 2019-06-22 15:28 | EC ---
PATIENT:BIJAN BOWSER DATE OF SERVICE: 06/21/19 SEX: F MEDICAL RECORD: [id number] DATE OF : [birth year] LOCATION:D.M2 D.212 AGE OF PATIENT: 84 ADMISSION DATE: 06/21/19 REFERRING PHYSICIAN: INTERPRETING PHYSICIAN: AMIE EASON MD ECHOCARDIOGRAM REPORT ECHO CHARGES 4 ECHO COMPLETE Date: 06/22/19 CLINICAL DIAGNOSIS: CHF ECHOCARDIOGRAPHIC MEASUREMENTS (adult normal given) AC root (d.<3.7cm) 2.7 cm LV Septum d (<1.2 cm> 1.2 cm Valve Excursion 1.5 cm LV Septum (systole) 1.9 cm Left Atria (s.<4.0cm> 3.6 cm LVPW d(<1.2cm) 1.3 cm RV (d.<2.3cm) 2.3 cm LVPW (sytole) 1.7 cm LV diastole(<5.6CM) 5.5 cm MV E-F(>70mm/sec) cm LV systole 3.4 cm LVOT Diameter 1.6 cm MV exc.(>10mm) cm Est.ejection fraction (50-75%) % DOPPLER: LVIT cm/sec A 142 cm/sec E 77.0 cm/sec LA cm/sec RVSP 46.0 mmHg LVOT 124 cm/sec AOP1/2T m/s Asc. Ao 151 cm/sec RVOT 62.0 cm/sec RA cm/sec PA 106 cm/sec AV Gradient Peak 9.1 mmHg AV Mean 3.7 mmHg AV Area 1.5 cm MV Gradient Peak 9.2 mmHg MV Mean 2.7 mmHg MV Area cm COMMENTS: Floor And Wall Applier Liquid: Katlyn AGUIRREOE Paperhanger: 1 Dr. Eason TAPE# PACS Pericardial Effusion N DATE OF SERVICE: 06/22/2019 FINDINGS: 1. Left ventricular chamber size is within normal limits. Left ventricular systolic function is moderate to severely reduced at 25% to 30%. 2. Left atrium, right atrium, and right ventricular chamber sizes are within normal limits. 3. Valvular structures have normal structure and motion. 4. Doppler interrogation reveals moderate mitral regurgitation, moderate tricuspid regurgitation, no other valvular insufficiency or stenosis. Pulmonary ECHOCARDIOGRAM REPORT [id number] BIJAN BOWSER systolic pressure is estimated at 46 mmHg. 5. No evidence of pericardial effusion or left ventricular thrombus. TRANSINT:[id number] Voice Confirmation ID: [id number] DOCUMENT ID: [id number] AMIE EASON MD at 1528 CC: [id number] DICTATION DATE: 06/22/19 1238 PACKAGE REINSPECTOR: 06/22/19 1247 DIS IN 06/22/19 [facility] [address] [place] [id number]
--- NOTE | 2019-06-22 15:28 | CN ---
PATIENT NAME:BIJAN BOWSER MEDICAL RECORD: [id number] : [birth year] LOCATION:D. D.2126 ADMIT DATE: 06/21/19 ACCOUNT: [id number] CONSULTING PHYSICIAN: AMIE EVANS MD REFERRING PHYSICIAN: ZIGGY DE LUNA MD DATE OF CONSULTATION: 06/20/2019 DIAGNOSES: 1. Non-Q-wave myocardial infarction. 2. Third-degree heart block. 3. Lower extremity edema. 4. Chest pain. 5. Gastroesophageal reflux disease. 6. Osteoarthritis. HISTORY OF PRESENT ILLNESS: Ms. Bowser has no history of ischemic heart disease. She began having chest pain and epigastric pain. She thought this was an exacerbation of her GERD, even though it is significantly different from any GERD pain. She has had in the past, presents to the Emergency Room where the troponin is elevated at 0.36. She is in third-degree heart block with ventricular rate in the 40. She has not noted any dizziness or lightheadedness. The chest pain has just been present for 24 hours. She has continuing to have the pain. Her EKG is with no acute ST-T abnormalities. PHYSICAL EXAMINATION: CONSTITUTIONAL/GENERAL APPEARANCE: Well nourished, well developed, appears stated age. EYES: Lids and conjunctivae noninjected. No discharge. No pallor. ENT: Lips within normal limit. No cyanosis. No pallor. NECK: Carotid arteries, bilateral normal upstroke. No bruits. No thrills. No jugular venous pressure or distention. CERVICAL LYMPH NODES: Nontender. Nonenlarged. THYROID: Not enlarged. No nodules. CARDIOVASCULAR: Precordial exam, nondisplaced. No heaves or pericardial thrills. Rate and rhythm, regular. Heart sounds, normal S1, normal S2. No S3, no gallop, no rub. Systolic murmur, not heard. Diastolic murmur, not heard. RESPIRATORY: Respiratory effort, unlabored. Normal curvature. No thoracic deformity. No chest wall tenderness. Percussion, resonant. Auscultation, clear. No wheezes, no rales, no rhonchi. ABDOMEN: Soft, nondistended, nontender. No abdominal pain, no vomiting and normal appetite. MUSCULOSKELETAL: No joint tenderness, normal gait, normal tone. SKIN: Warm and dry. OVERALL IMPRESSION: Non-Q-wave myocardial infarction. At this time, we will give her aspirin, Plavix and nitro patch. Obviously, no beta-penny due to the bradycardia, proceed with coronary angiography in the a.m. Further care depends upon findings of the angiography. As well get an echocardiogram for overall LV function due to lower extremity edema. TRANSINT:[id number] Voice Confirmation ID: [id number] DOCUMENT ID: [id number] CONSULT REPORT [id number] BIJAN BOWSER, AMIE CAMPBELL at 1528 CC: [id number] DICTATION DATE: 06/20/19 1507 DRIER FEEDER: 06/20/191913 DIS IN 06/22/19 [facility] [address] [place] [address]
--- NOTE | 2019-06-22 15:28 | OP ---
PATIENT NAME: BIJAN BOWSER MEDICAL RECORD: [id number] :35 LOCATION:D.M2 D.2126 ADMISSION DATE:06/21/19 SURGEON: AMIE EVANS MD DATE OF OPERATION: 06/21/2019 PROCEDURES: 1. Left heart catheterization. 2. Selective coronary angiography. 3. Left ventriculogram. INDICATION: Non-Q-wave myocardial infarction, third-degree heart block. PROCEDURE IN DETAIL: After informed consent was obtained and after a detailed description of risks, benefits as well as alternative therapies, the patient elected to proceed with angiogram and heart catheterization. The right femoral area was prepped and draped in normal sterile fashion. Right femoral artery was cannulated via modified Seldinger technique with placement of 5-Northern Irish sheath. All catheters exchanged through this sheath. FINDINGS: The left ventriculogram was performed in a standard 30-degree JETT view, reveals global hypokinesis, apical akinesis, ejection fraction 25%. SELECTIVE CORONARY ANGIOGRAPHY: Left main, left anterior descending, left circumflex, and right coronary artery are all smooth-walled vessels with no angiographic evidence of coronary artery disease. OVERALL IMPRESSION: 1. No angiographic evidence of coronary artery disease. 2. Severe cardiomyopathy. TRANSINT:[id number] Voice Confirmation ID: [id number] DOCUMENT ID: [id number] AMIE EVANS MD at 1528 CC: [id number] DICTATION DATE: 06/21/19 1027 ASSOCIATE PROFESSOR OF RADIOLOGY: 06/21/19 1044 DIS IN 06/22/19 [id number] [place] [address]
== END 2019-06-22 13:00 | disposition home health service (06) | DRG 281 ==
LOC: D.ER 13:26 → D.M2 15:53 → OBSVTIME 15:54 → D.M2 06-21 15:19
PROVIDERS: Family Medicine; Internal Medicine Interventional Cardiology; ADMIT Family Medicine; ATTEND Family Medicine
PROC: B2151ZZ Fluoroscopy of Left Heart using Low Osmolar Contrast (ICD-10-PCS; 2019-06-21)
PROC: 4A023N7 Measurement of Cardiac Sampling and Pressure, Left Heart, Percutaneous Approach (ICD-10-PCS; 2019-06-21)
PROC: B2111ZZ Fluoroscopy of Multiple Coronary Arteries using Low Osmolar Contrast (ICD-10-PCS; principal; 2019-06-21 10:15)
DX: I21.4 Non-ST elevation (NSTEMI) myocardial infarction (principal); I44.2 Atrioventricular block, complete; I42.9 Cardiomyopathy, unspecified; K21.9 Gastro-esophageal reflux disease without esophagitis; M19.90 Unspecified osteoarthritis, unspecified site; Z66 Do not resuscitate; F79 Unspecified intellectual disabilities

== ENCOUNTER 2020-01-18 17:55 | Inpatient (IN) | payer MEDICARE, OTHER ==
[~2020-01-18] VITALS: Ht 154.9 cm; Wt 61.4 kg
[2020-01-18 19:00] LABS: CALC OSMOLALITY 277 mosm/kg (275-300); CALCIUM 8.7 mg/dL (8.5-10.1); CARBON DIOXIDE 27.2 mmol/L (21.0-32.0); CHLORIDE - SERUM 101 mmol/L (98-107); CREATININE - SERUM 1.7 mg/dL (0.6-1.3); GLUCOSE 122 mg/dL (74-106); POTASSIUM - SERUM 4.7 mmol/L (3.5-5.1); SODIUM 136 mmol/L (136-145); UREA NITROGEN 27 mg/dL (7-18); eGFR NON AFRICAN AMERICAN 30 mL/min (90-120)
[2020-01-18 19:17] LABS: ALBUMIN 3.4 g/dL (3.4-5.0); ALKALINE PHOSPHATASE 99 U/L (30-120); ALT (SGPT) 15 U/L (10-68); BILIRUBIN - TOTAL 0.42 mg/dL (0.2-1.3); CKMB 0.9 U/L (0.0-3.6); CREATINE KINASE 66 UL (21-215); MAGNESIUM - SERUM 2.2 mg/dL (1.8-2.4); PROTEIN - SERUM 6.4 g/dL (6.4-8.2); TROPONIN-I < 0.017 ng/mL (0.000-0.060)
[2020-01-18 19:37] LABS: INR 1.04 (0.85-1.17); PROTIME 13.5 SECONDS (11.6-15.0)
[2020-01-18 19:38] LABS: APTT 29.8 SECONDS (22.8-39.4)
--- NOTE | 2020-01-18 20:05 | NUR ---
PLEASE NOTE, THIS CHART COMPLETED BY MICHELLE LEYVA RN NOT LAMAR HARRIS RN.
[2020-01-18 21:27] LABS: BASOPHILS 0.2 % (0-2); EOSINOPHILS 0.3 % (0-7); HEMATOCRIT 35.4 % (36.0-48.0); HEMOGLOBIN 11.7 g/dL (12-16); IMMATURE GRANULOCYTES 0.2 % (0-5); LYMPHOCYTES 14.2 % (15-50); MCH 31.4 pg (26.0-34.0); MCHC 33.1 g/dL (31.0-37.0); MCV 94.9 fL (80.0-100.0); MEAN PLATELET VOLUME 9.4 fL (7.4-10.4); MONOCYTES 6.3 % (2-11); NEUTROPHILS 78.8 % (40-80); RBC 3.73 10x6/uL (4.00-5.40); RDW 12.2 % (11.5-14.5); WBC 11.5 10x3/uL (4.8-10.8)
[2020-01-18 21:29] LABS: PLATELET COUNT 214 10x3/uL (130-400)
[2020-01-18] MEDS ORDERED: SEROQUEL25 MG PO (21:47)
[2020-01-18 22:23] VITALS: BP 130/47; Ht 154.9 cm; Wt 61.4 kg
[2020-01-18 22:45] VITALS: BP 130/47
[2020-01-19 01:25] LABS: BASOPHILS 0.2 % (0-2); EOSINOPHILS 0.4 % (0-7); HEMATOCRIT 30.9 % (36.0-48.0); HEMOGLOBIN 9.9 g/dL (12-16); IMMATURE GRANULOCYTES 0.1 % (0-5); LYMPHOCYTES 12.7 % (15-50); MEAN PLATELET VOLUME 9.4 fL (7.4-10.4); MONOCYTES 6.2 % (2-11); NEUTROPHILS 80.4 % (40-80); PLATELET COUNT 193 10x3/uL (130-400); RBC 3.19 10x6/uL (4.00-5.40); RDW 12.3 % (11.5-14.5); WBC 9.5 10x3/uL (4.8-10.8)
[2020-01-19 01:27] LABS: MCV 96.9 fL (80.0-100.0)
--- NOTE | 2020-01-19 01:29 | NUR ---
PATIENT RESTING IN BED WITH WITH NO NOTED DISTRESS EYES CLOUSED SLEEPING RESPRATIONS EVEN AND UNLABORED. WATER AT BEDSIDE CALL LIGHT IN REACH. CHECKED OFTEN FOR NEEDS AND SAFETY. EDUCATED ON INCENTIVE SPROMETER. PLACED ON FALL PRECATIONS POSIE ALARM IN PLACE AND ON. TELEMETRY IN PLACR HEART RATE 25-28 WITH COMPLET HEART BLOCK. CONSTRUCTION MGR WAS IN AND AWARE. PATIENT WAS ON HOSPICE AT HOME FOR COMPLET HEART BLOCK AND IS A DNR. UP WITH ASSISTANCE.
[2020-01-19 01:41] LABS: ALKALINE PHOSPHATASE 76 U/L (30-120); CALCIUM 8.2 mg/dL (8.5-10.1); CARBON DIOXIDE 26.1 mmol/L (21.0-32.0); CREATININE - SERUM 1.7 mg/dL (0.6-1.3); GLUCOSE 147 mg/dL (74-106); MAGNESIUM - SERUM 2.2 mg/dL (1.8-2.4); PROTEIN - SERUM 5.1 g/dL (6.4-8.2); TROPONIN-I < 0.017 ng/mL (0.000-0.060); UREA NITROGEN 27 mg/dL (7-18); eGFR NON AFRICAN AMERICAN 30 mL/min (90-120)
[2020-01-19 01:45] LABS: ALBUMIN 2.4 g/dL (3.4-5.0); ALT (SGPT) 9 U/L (10-68)
[2020-01-19 01:50] LABS: CALC OSMOLALITY 277 mosm/kg (275-300); CHLORIDE - SERUM 103 mmol/L (98-107); POTASSIUM - SERUM 4.5 mmol/L (3.5-5.1); SODIUM 135 mmol/L (136-145)
[2020-01-19 08:27] VITALS: BP 164/91
--- NOTE | 2020-01-19 10:07 | NUR ---
PT DISORIENTED TO TIME. BREATH SOUNDS CLEAR BILAT, 2L O2 PER NC. IV TO LEFT AC, PATENT, DRESSING CDI. PT REPORTING NO PAIN AT THIS TIME. BED LOW, CALL LIGHT IN REACH. NO OTHER NEEDS AT THIS TIME.
[2020-01-19 13:15] VITALS: BP 100/44
[2020-01-19 13:32] LABS: CKMB 1.6 U/L (0.0-3.6); CREATINE KINASE 59 UL (21-215); TROPONIN-I < 0.017 ng/mL (0.000-0.060)
[2020-01-19 17:46] VITALS: BP 145/42
--- NOTE | 2020-01-19 19:00 | NUR ---
BEDSIDE REPORT RECEIVED AND CARE OF PT ASSUMED. PT LYING IN SUPINE POSITION. IV TO LEFT AC PATENT WITH NS INFUSING AT 75 ML/HR. O2 IN USE VIA NC AT 2L. BED ALARM IN USE FOR SAFETY.
[2020-01-19 20:00] VITALS: BP 145/75
[2020-01-19 20:10] LABS: CKMB 1.7 U/L (0.0-3.6); CREATINE KINASE 69 UL (21-215)
[2020-01-19 20:18] LABS: TROPONIN-I < 0.017 ng/mL (0.000-0.060)
--- NOTE | 2020-01-19 21:12 | NUR ---
HS MEDICATIONS GIVEN. WILL CONTINUE TO MONITOR FOR NEEDS..
--- NOTE | 2020-01-20 03:05 | NUR ---
COLLECTED URINE FOR ORDERED UA VIA IN AND OUT CATH PT IS INCONTINENT. DELIVERED SAMPLE TO LAB.
[2020-01-20 03:18] LABS: BACTERIA MANY /hpf (NEGATIVE); BILIRUBIN NEGATIVE (NEGATIVE); EPITHELIAL CELLS RARE /hpf (0-5); GLUCOSE NEGATIVE (NEGATIVE); KETONE SMALL mg/dL (NEGATIVE); NITRITE NEGATIVE (NEGATIVE); RED CELLS - URINE 0-5 /hpf (0-5); UROBILINOGEN NORMAL (NORMAL); WHITE CELLS - URINE >50 /hpf (NEGATIVE)
[2020-01-20 03:19] LABS: AMORPHOUS SEDIMENT >1+ /lpf (NONE SEEN)
[2020-01-20 07:24] LABS: BASOPHILS 0.2 % (0-2); EOSINOPHILS 3.6 % (0-7); HEMATOCRIT 32.5 % (36.0-48.0); HEMOGLOBIN 10.3 g/dL (12-16); IMMATURE GRANULOCYTES 0.1 % (0-5); LYMPHOCYTES 24.5 % (15-50); MCH 30.9 pg (26.0-34.0); MCHC 31.7 g/dL (31.0-37.0); MCV 97.6 fL (80.0-100.0); MEAN PLATELET VOLUME 9.8 fL (7.4-10.4); MONOCYTES 5.6 % (2-11); PLATELET COUNT 181 10x3/uL (130-400); RBC 3.33 10x6/uL (4.00-5.40); RDW 12.4 % (11.5-14.5); WBC 8.3 10x3/uL (4.8-10.8)
[2020-01-20 07:41] LABS: ALBUMIN 2.5 g/dL (3.4-5.0); ANION GAP 11.2 mmol/L (8-16); BILIRUBIN - TOTAL 0.44 mg/dL (0.2-1.3); CALCIUM 8.1 mg/dL (8.5-10.1); CREATININE - SERUM 1.7 mg/dL (0.6-1.3); POTASSIUM - SERUM 4.2 mmol/L (3.5-5.1); PROTEIN - SERUM 5.3 g/dL (6.4-8.2)
[2020-01-20 09:35] VITALS: BP 137/57
--- NOTE | 2020-01-20 10:16 | NUR ---
PT CONFUSED TO TIME. BREATH SOUNDS CLEAR BILAT, 2L O2 PER NC. TELEMETRY IN PLACE. IV TO LEFT AC, PATENT, DRESSING CDI. PT REPORTING NO PAIN AT THIS TIME. BED LOW, CALL LIGHT IN REACH. NO OTHER NEEDS AT THIS TIME.
[2020-01-20 12:31] VITALS: BP 142/68
[2020-01-20 16:17] VITALS: BP 129/52
--- NOTE | 2020-01-20 19:00 | NUR ---
BEDSIDE REPORT RECEIVED AND CARE OF PT ASSUMED. PT LYING IN LOW AYON'S POSITION WITH EYES CLOSED. IV TO LEFT AC PATENT WITH NS INFUSING AT 75 ML/HR. BED ALARM IN PLACE. TELEMETRY IN USE AND PT BRADYCARDIC AT THIS ASSESSMENT.
--- NOTE | 2020-01-20 20:52 | NUR ---
HS MEDICATIONS GIVEN. WILL CONTINUE TO MONITOR FOR NEEDS.
[2020-01-21 06:13] LABS: BASOPHILS 0.3 % (0-2); EOSINOPHILS 2.1 % (0-7); HEMATOCRIT 33.6 % (36.0-48.0); HEMOGLOBIN 10.6 g/dL (12-16); IMMATURE GRANULOCYTES 0.1 % (0-5); LYMPHOCYTES 19.7 % (15-50); MCH 30.6 pg (26.0-34.0); MCHC 31.5 g/dL (31.0-37.0); MCV 97.1 fL (80.0-100.0); MEAN PLATELET VOLUME 9.5 fL (7.4-10.4); MONOCYTES 7.7 % (2-11); NEUTROPHILS 70.1 % (40-80); PLATELET COUNT 168 10x3/uL (130-400); RBC 3.46 10x6/uL (4.00-5.40); RDW 12.3 % (11.5-14.5); WBC 7.5 10x3/uL (4.8-10.8)
[2020-01-21 06:41] LABS: ALBUMIN 2.4 g/dL (3.4-5.0); ANION GAP 9.4 mmol/L (8-16); BILIRUBIN - TOTAL 0.32 mg/dL (0.2-1.3); CALCIUM 8.2 mg/dL (8.5-10.1); CARBON DIOXIDE 24.5 mmol/L (21.0-32.0); CREATININE - SERUM 1.5 mg/dL (0.6-1.3); POTASSIUM - SERUM 3.9 mmol/L (3.5-5.1); PROTEIN - SERUM 5.4 g/dL (6.4-8.2)
--- NOTE | 2020-01-21 15:39 | MORECARE ---
CASE MANAGEMENT DISCHARGE SUMMARY PATIENT: BIJAN BOWSER UNIT: [id number] ADM DATE: 01/18/20 AGE: 84 : 35 SEX: F ROOM/BED: D.2236 AUTHOR: BEL ESCOBAR PHYSICIAN: REFERRING PHYSICIAN: CARRIE GUIDO DO DATE OF SERVICE: 01/21/20 Discharge Plan Patient Name: BIJAN BOWSER Facility: [facility]:[place] : 1935 Planned Disposition: Home Anticipated Discharge Date: Discharge Date: Expected LOS: Initial Reviewer: [id number] Initial Review Date: 01/21/2020 Generated: 01/21/20 4:38 pm Coverage Notice Reviewer: [id number] - Chela Mayo Notice Issued Date-Time: 01/21/2020 15:35 Notice Type: IM Discharge Notice Notice Delivered To: Patient Relationship to Patient: Farm Service Consultant Name: Delivery Method: HAND - Hand Delivered Gail Days: Prior Verbal Notification: Recipient Understood Notice: Yes Recipient Signature: Yes Med Rec Note Co-signed by Attending: Coverage Notice Comment: Patient Name: BIJAN BOWSER Page [phone] at 1539 All edits/amendments must be made on the electronic document DICTATION DATE: 01/21/201537 FIELD ASSESSOR: HASEEB 01/21/201537 RPT#: [id number] DC DATE: STATUS: ADM IN [place] [address] [place] [address] END OF REPORT
--- NOTE | 2020-01-21 15:48 | MORECARE ---
CASE MANAGEMENT DISCHARGE SUMMARY PATIENT: BIJAN BOWSER UNIT: [id number] ADM DATE: 01/18/20 AGE: 84 : 35 SEX: F ROOM/BED: D.2236 AUTHOR: BEL ESCOBAR PHYSICIAN: REFERRING PHYSICIAN: CARRIE GUIDO DO DATE OF SERVICE: 01/21/20 Discharge Plan Patient Name: BIJAN BOWSER Facility: [facility]:[place] : 1935 Planned Disposition: Home Anticipated Discharge Date: Discharge Date: Expected LOS: Initial Reviewer: [id number] Initial Review Date: 01/21/2020 Generated: 01/21/20 4:47 pm Comments DCP- Discharge Planning Updated by [email or web address]: Chela Mayo on 01/21/20 2:[address] Patient Name: BIJAN BOWSER Admission Status: ER Accout number: [id number] Admission Date: 01-18-2020 : 1935 Admission Diagnosis: Attending: CARRIE GUIOD Current LOS: 3 Anticipated DC Date: Planned Disposition: Home Primary Insurance: MEDICARE A & B Discharge Planning Comments: CM met with patient at bedside after explaining CM role and obtaining verbal consent. CM discussed availability / needs of home health, REHAB and medical equipment. PATIENT PLANS TO DC TO HOME WHERE SHE HAS 24 HR CAREGIVERS. [facility] WILL ADMIT WHEN SHE GETS HOME. IMM SIGNED. [facility] NOTIFIED AND CLINICALS FAXED. Cosmetic Sales Consultant: Chela Mayo External Providers External Provider: [facility] Next Contact Date: Service Request Date: Service Type: Resolution: Reviewer: Comments: Coverage Notice Reviewer: [id number] - Chela Mayo Notice Issued Date-Time: 01/21/2020 15:35 Notice Type: IM Discharge Notice Notice Delivered To: Patient Relationship to Patient: Inspector Metal Fabricating Name: Delivery Method: HAND - Hand Delivered Gail Days: Prior Verbal Notification: Recipient Understood Notice: Yes Recipient Signature: Yes Med Rec Note Co-signed by Attending: Coverage Notice Comment: Last DP export: 01/21/20 2:39 p Patient Name: BIJAN BOWSER Page 85039 at 1548 All edits/amendments must be made on the electronic document DICTATION DATE: 01/21/20 154 COTTON STRIPPER: HASEEB 01/21/20 154 RPT#: [id number] DC DATE: STATUS: ADM IN [facility] [address] [place] [address] END OF REPORT
[2020-01-21] MEDS ORDERED: BACTRIM DS TAB1 EAC1 PO (16:56)
[2020-01-21 17:02] VITALS: BP 111/60
--- NOTE | 2020-01-21 19:32 | NUR ---
IV TO LEFT AC DC'D, TIP INTACT. PAPERWORK GIVEN TO EMS. LEFT VIA STRETCHER.
--- NOTE | 2020-01-23 01:52 | NUR ---
LATE ENTRY FOR 01/18/2020, NS CONTINUED TO FLOOR, STOP TIME 2203 APPROX 87.5ML INFUSED.
== END 2020-01-21 19:32 | disposition home health service (06) | DRG 309 ==
LOC: D.ER 17:55 → D.MS 20:42
PROVIDERS: Family Medicine; ADMIT Family Medicine; ATTEND Family Medicine
DX: I44.2 Atrioventricular block, complete (principal); I25.110 Atherosclerotic heart disease of native coronary artery with unstable angina pectoris; N39.0 Urinary tract infection, site not specified; F32.9 Major depressive disorder, single episode, unspecified; I12.9 Hypertensive chronic kidney disease with stage 1 through stage 4 chronic kidney disease, or unspecified chronic kidney disease; N18.9 Chronic kidney disease, unspecified; K21.9 Gastro-esophageal reflux disease without esophagitis; F79 Unspecified intellectual disabilities; Z66 Do not resuscitate; R07.9 Chest pain, unspecified; Z51.5 Encounter for palliative care

== ENCOUNTER 2020-01-31 02:06 | Inpatient (IN) | payer MEDICARE, OTHER ==
[2020-01-31] VITALS (31 sets, daily range): BP systolic 84–181; BP diastolic 33–101; Ht 154.9 cm; Wt 59.1 kg
[~2020-01-31] VITALS: Ht 154.9 cm; Wt 59.1 kg
[~2020-01-31 02:06] MED LIST changes: +BACTRIM DS TAB1 EAC1 PO; +SEROQUEL25 MG PO
[2020-01-31 02:31] LABS: BASOPHILS 0.1 % (0-2); EOSINOPHILS 0 % (0-7); HEMATOCRIT 34.8 % (36.0-48.0); HEMOGLOBIN 11.9 g/dL (12-16); IMMATURE GRANULOCYTES 0.3 % (0-5); LYMPHOCYTES 3.3 % (15-50); MCH 31.3 pg (26.0-34.0); MCHC 34.2 g/dL (31.0-37.0); MCV 91.6 fL (80.0-100.0); MEAN PLATELET VOLUME 10.2 fL (7.4-10.4); MONOCYTES 3.5 % (2-11); NEUTROPHILS 92.8 % (40-80); PLATELET COUNT 240 10x3/uL (130-400); WBC 19.3 10x3/uL (4.8-10.8)
--- NOTE | 2020-01-31 02:33 | NUR ---
CONSENT FOR BLOOD SIGNED. ONE UNIT BLOOD STARTED AT THIS TIME. EMERGENCY RELEASE.
--- NOTE | 2020-01-31 02:41 | NUR ---
PT IN V TACH AT THIS TIME MD AT BEDSIDE. PT DAUGHTER STATES TO JUST TREAT PT WITH MEDS NO INTERVENTIONS, MEDS ONLY CODE.
[2020-01-31 02:43] LABS: APTT 21.8 SECONDS (22.8-39.4); INR 1.13 (0.85-1.17); PROTIME 14.4 SECONDS (11.6-15.0)
--- NOTE | 2020-01-31 02:47 | NUR ---
PT ALERT AND ORIENTED AT THIS TIME, SEE EMAR. PT HR IS 32
[2020-01-31 02:53] LABS: ANION GAP 12.3 mmol/L (8-16); CALCIUM 8.9 mg/dL (8.5-10.1); CARBON DIOXIDE 26.7 mmol/L (21.0-32.0); CREATININE - SERUM 2.3 mg/dL (0.6-1.3)
[2020-01-31 03:13] LABS: BILIRUBIN - TOTAL 0.5 mg/dL (0.2-1.3); MAGNESIUM - SERUM 2.1 mg/dL (1.8-2.4); PROTEIN - SERUM 5.5 g/dL (6.4-8.2)
[2020-01-31 03:16] LABS: TROPONIN-I 0.156 ng/mL (0.000-0.060)
--- NOTE | 2020-01-31 06:00 | NUR ---
CALLED DR. POPE AT 0518. NEW ORDER FOR NS BOLUS AND TO CALL DR. OCHOA. CALLED DR. OCHOA, NEW ORDERS FOR DOPAMINE FOR HEART RATE AND MARYELLEN IF BP DROPS AGAIN. CALLED DR. POPE BACK TO INFORM HIM. DOPAMINE STARTED AND NS BOLUS STARTED
--- NOTE | 2020-01-31 08:00 | NUR ---
DR HUYNH HERE TO SEE PT, VERBAL ORDERS RECIEVED.
--- NOTE | 2020-01-31 08:15 | NUR ---
DR HUYNH SPEAKING WITH PTS SISTER REBECA FUNG AT THIS TIME, PROVIDING UPDATES AND CONFIRMING PTS PLAN OF CARE AND RECONFIRMING CODE STATUS.
--- NOTE | 2020-01-31 09:42 | NUR ---
PT CONFIRMS AT THIS TIME THAT SHE WANTS HOSPICE AND WANTS TO "REST" AND WANTS COMFORT MEASURES TO KEEP HER COMFORTABLE WITH DNR STATUS. PT STATES SHE DOES NOT KNOW HER HOSPICE NAME. WILL NOTIFY CASE MANAGEMENT. VSS. WILL CONTINUE PLAN OF CARE.
--- NOTE | 2020-01-31 09:47 | NUR ---
ATIVAN AND MORPHINE ORDERS CHANGED FROM SCHEDULED TO PRN PER DR HUYNH ORDERS.
--- NOTE | 2020-01-31 11:05 | NUR ---
LYING IN BED WITH EYES CLOSED AT THIS TIME. VSS. NO ACUTE DISTRESS NOTED. RESPIRATIONS STEADY AND UNLABORED. PT AWAKENS WHEN SPOKEN TO. CURRENTLY ALERT AND ORIENTED. TURNED Q2H. WILL CONTINUE PLAN OF CARE.
--- NOTE | 2020-01-31 11:28 | MORECARE ---
CASE MANAGEMENT DISCHARGE SUMMARY PATIENT: BIJAN BOWSER UNIT: [id number] ADM DATE: 01/31/20 AGE: 84 : 35 SEX: F ROOM/BED: D.2304 AUTHOR: BEL ESCOBAR PHYSICIAN: REFERRING PHYSICIAN: MICHELLE POPE MD DATE OF SERVICE: 01/31/20 Discharge Plan Patient Name: BIJAN BOWSER [facility] [facility] 1935 Planned Disposition: Hospice Home Anticipated Discharge Date: 01/31/20 Discharge Date: Expected LOS: 1 Initial Reviewer: [email or web address] Initial Review Date: 01/31/2020 Generated: 01/31/20 12:27 pm External Providers External Provider: [facility] Next Contact Date: Service Request Date: Service Type: Resolution: Reviewer: Comments: Patient Name: BIJAN BOWSER Page [id number] at 1128 All edits/amendments must be made on the electronic document DICTATION DATE: 01/31/20 1127 PODIATRIC SURGEON: HASEEB 01/31/20 1127 RPT#: [id number] DC DATE: STATUS: ADM IN [facility] [address] [place] [address] END OF REPORT
--- NOTE | 2020-01-31 11:36 | MORECARE ---
CASE MANAGEMENT DISCHARGE SUMMARY PATIENT: BIJAN BOWSER UNIT: [id number] ADM DATE: 01/31/20 AGE: 84 : 35 SEX: F ROOM/BED: D.2304 AUTHOR: BEL ESCOBAR PHYSICIAN: REFERRING PHYSICIAN: MICHELLE GIVENS MD DATE OF SERVICE: 01/31/20 Discharge Plan Patient Name: BIJAN BOWSER Facility: [facility]:[place] : 1935 Planned Disposition: Hospice Home Anticipated Discharge Date: 01/31/20 Discharge Date: Expected LOS: 1 Initial Reviewer: [email or web address] Initial Review Date: 01/31/2020 Generated: 01/31/20 12:36 pm Comments DCP- Discharge Planning Updated by [email or web address]: Marjan Hidalgo on 01/31/20 10:[address] Patient Name: BIJAN BOWSER Admission Status: ER Accout number: [id number] Admission Date: 01-31-2020 : 1935 Admission Diagnosis: Attending: MICHELLE HUYNH Current LOS: 1 Anticipated DC Date: 01-31-2020 Planned Disposition: Hospice Home Primary Insurance: MEDICARE A & B Discharge Planning Comments: 08:26 CM received call from ICU nurse, Aggie, stating Dr. Givens spoke with patient's sister, Zuleika Segovia, and wants Hospice Eval. [facility] patient currently gets Hospice at home from an agency. 09:10 CM called Zuleika Segovia to discuss Hospice orders. Zuleika states the patient makes her own decisions and she could not make that decision for the patient. [facility] patient does currently get hospice at home. [facility] patient gets services from [facility] and has caregivers in the home. CM spoke with Constance in ICU about this. 09:40 CM received follow up call from Constance in ICU stating patient has chosen [facility], and that is the agency she is currently enrolled with. 10:15 CM called [facility] ([facility]). Spoke with Mirella about referral. Reviewed records with Mirella and faxed records as requested. Mirella states they will come to hospital to evaluate patient. States patient will have to understand that she can't come in and out of the hospital with hospice services and if they feel like patient will not adhere to this they will refer patient to home health services. But states they will let CM know if they are going to accept patient back into hospice or not after their eval. CM notified Crystal in ICU on status of referral. Discussed care in IDT meeting. CM will continue to follow and assist as needed with DCP needs. JUSTIN explained and signed for [facility]. DC IMM explained and signed. Transportation Planning Technician: Marjan Hidalgo Last DP export: 01/31/20 10:28 am Patient Name: BIJAN BOWSER Page 98584 at 1136 All edits/amendments must be made on the electronic document DICTATION DATE: 01/31/20 1136 WANT AD RECEIVER: HASEEB 01/31/20 1136 RPT#: [id number] DC DATE: STATUS: ADM IN [facility] [address] [place] [address] END OF REPORT
--- NOTE | 2020-01-31 12:24 | MORECARE ---
CASE MANAGEMENT DISCHARGE SUMMARY PATIENT: BIJAN BOWSER UNIT: [id number] ADM DATE: 01/31/20 AGE: 84 : 35 SEX: F ROOM/BED: D.2304 AUTHOR: LUZ,DOC PHYSICIAN: REFERRING PHYSICIAN: MICHELLE GIVENS MD DATE OF SERVICE: 01/31/20 Discharge Plan Patient Name: BIJAN BOWSER Facility: [facility]:[place] : 1935 Planned Disposition: Hospice Home Anticipated Discharge Date: 01/31/20 Discharge Date: Expected LOS: 1 Initial Reviewer: [id number] Initial Review Date: 01/31/2020 Generated: 01/31/20 1:23 pm Comments DCP- Discharge Planning Updated by [id number]: Marjan Hidalgo on 01/31/20 11:[address] 11:50 CM received call back from Mirella at [facility] stating they will resume Hospice services at the patient's fci on [address]. [facility] can proceed with discharge to home and hospice nurse will see patient later this afternoon. NICOLE called patient's sister, Zuleika and notified her of discharge plans. Zuleika is in agreement with discharge plan. NICOLE called [facility] and spoke with Jaret at [facility]. Jaret informed CM to call Lucina Cuello, machine maintenance supervisor, at [phone]. CM called and left message for Lucina to return CM call. NICOLE called and spoke with Erma at [phone]. Erma informed CM that I needed to call Jaret to coordinate transportation back to fci. NICOLE informed Erma that Jaret instructed CM to call Lucina Cuello, machine maintenance supervisor or Mrs. Gracia at [phone]. Erma informed CM that Lucina is out on medical leave and Mrs. Gracia is unavailable. Erma voiced concern about facilities ability to meet patient needs at fci, but states she is not over patient's care. States she will have someone call CM back about discharge plan and transportation. DCP- Discharge Planning Updated by [id number]: Marjan Hidalgo on 01/31/20 10:[address] Patient Name: BIJAN BOWSER Admission Status: ER Accout number: [id number] Admission Date: 01-31-2020 : 1935 Admission Diagnosis: Attending: MICHELLE HUYNH Current LOS: 1 Anticipated DC Date: 01-31-2020 Planned Disposition: Hospice Home Primary Insurance: MEDICARE A & B Discharge Planning Comments: 08:26 CM received call from ICU nurse, Aggie, stating Dr. Givens spoke with patient's sister, Zuleika Segovia, and wants Hospice Eval. [facility] patient currently gets Hospice at home from an agency. 09:10 CM called Zuleika Segovia to discuss Hospice orders. Zuleika states the patient makes her own decisions and she could not make that decision for the patient. [facility] patient does currently get hospice at home. [facility] patient gets services from [facility] and has caregivers in the home. CM spoke with Constance in ICU about this. 09:40 CM received follow up call from Constance in ICU stating patient has chosen [facility], and that is the agency she is currently enrolled with. 10:15 CM called [facility] ([facility]). Spoke with Mirella about referral. Reviewed records with Mirella and faxed records as requested. Mirella states they will come to hospital to evaluate patient. [facility] patient will have to understand that she can't come in and out of the hospital with hospice services and if they feel like patient will not adhere to this they will refer patient to home health services. But [facility] they will let CM know if they are going to accept patient back into hospice or not after their eval. CM notified Constance in ICU on status of referral. Discussed care in IDT meeting. CM will continue to follow and assist as needed with DCP needs. JUSTIN explained and signed for [facility]. DC IMM explained and signed. Entry Analyst: Marjan Willis DP export: 01/31/20 10:36 am Patient Name: BIJAN BOWSER Page 51424 at 1224 All edits/amendments must be made on the electronic document DICTATION DATE: 01/31/20 1223 TRACTOR TRAILER MOVING VAN DRIVER: HASEEB 01/31/20 1223 RPT#: [id number] DC DATE: STATUS: ADM IN [place] [address] [place] [address] END OF REPORT
--- NOTE | 2020-01-31 12:34 | MORECARE ---
CASE MANAGEMENT DISCHARGE SUMMARY PATIENT: BIJAN BOWSER UNIT: [id number] ADM DATE: 01/31/20 AGE: 84 : 35 SEX: F ROOM/BED: D.2304 AUTHOR: LUZ,DOC PHYSICIAN: REFERRING PHYSICIAN: MICHELLE GIVENS MD DATE OF SERVICE: 01/31/20 Discharge Plan Patient Name: BIJAN BOWSER Facility: [facility]:[place] : 1935 Planned Disposition: Hospice Home Anticipated Discharge Date: 01/31/20 Discharge Date: Expected LOS: 1 Initial Reviewer: [email or web address] Initial Review Date: 01/31/2020 Generated: 01/31/20 1:33 pm Comments DCP- Discharge Planning Updated by [email or web address]: Marjan Hidalgo on 01/31/20 11:[address] 11:50 CM received call back from Mirella at [facility] stating they will resume Hospice services at the patient's senior care on [facility]. [facility] can proceed with discharge to home and hospice nurse will see patient later this afternoon. NICOLE called patient's sister, Zuleika and notified her of discharge plans. Zuleika is in agreement with discharge plan. NICOLE called [facility] and spoke with Jaret at [facility]. Jaret informed CM to call Lucina Cuello, paving supervisor, at [phone]. NICOLE called and left message for Lucina to return CM call. NICOLE called and spoke with Erma at [phone]. Erma informed CM that I needed to call Jaret to coordinate transportation back to senior care. NICOLE informed Erma that Jaret instructed CM to call Lucina Cuello, paving supervisor or Mrs. Gracia at [phone]. Erma informed CM that Lucina is out on medical leave and Mrs. Gracia is unavailable. Erma voiced concern about facilities ability to meet patient needs at senior care, but states she is not over patient's care. States she will have someone call CM back about discharge plan and transportation. NICOLE called Mirella back at [facility] and notified her about statement made by Erma regarding meeting patient needs. CM requested hospice come to hospital and evaluate patient for GIP hospice prior to discharge to senior care. Mirella will call senior care and call CM back. DCP- Discharge Planning Updated by [id number]: Marjan Hidalgo on 01/31/20 10:[address] Patient Name: BIJAN BOWSER Admission Status: ER Accout number: [id number] Admission Date: 01-31-2020 : 1935 Admission Diagnosis: Attending: MICHELLE HUYNH Current LOS: 1 Anticipated DC Date: 01-31-2020 Planned Disposition: Hospice Home Primary Insurance: MEDICARE A & B Discharge Planning Comments: 08:26 CM received call from ICU nurse, Aggie, stating Dr. Givens spoke with patient's sister, Zuleika Segovia, and wants Hospice Eval. [facility] patient currently gets Hospice at home from an agency. 09:10 CM called Zuleika Segovia to discuss Hospice orders. Zuleika states the patient makes her own decisions and she could not make that decision for the patient. [facility] patient does currently get hospice at home. [facility] patient gets services from [facility] and has caregivers in the home. CM spoke with Constance in ICU about this. 09:40 CM received follow up call from Constance in ICU stating patient has chosen [facility], and that is the agency she is currently enrolled with. 10:15 CM called [facility] ([facility]). Spoke with Mirella about referral. Reviewed records with Mirella and faxed records as requested. Mirella states they will come to hospital to evaluate patient. States patient will have to understand that she can't come in and out of the hospital with hospice services and if they feel like patient will not adhere to this they will refer patient to home health services. But [facility] they will let CM know if they are going to accept patient back into hospice or not after their eval. CM notified Constance in ICU on status of referral. Discussed care in IDT meeting. CM will continue to follow and assist as needed with DCP needs. JUSTIN explained and signed for [facility]. DC IMM explained and signed. Waxer: Marjan Willis DP export: 01/31/20 11:24 am Patient Name: BIJAN BOWSER Page 72738 at 1234 All edits/amendments must be made on the electronic document DICTATION DATE: 01/31/20 1233 KITCHEN ASSISTANT: HASEEB 01/31/20 1233 RPT#: [id number] DC DATE: STATUS: ADM IN [facility] [address] [place] [address] END OF REPORT
--- NOTE | 2020-01-31 13:30 | NUR ---
[facility] AT BEDSIDE, POC DISCUSSED,
--- NOTE | 2020-01-31 15:41 | NUR ---
UPDATE FROM GILBERTO RIVERA DC PAPERWORK INITIATED
--- NOTE | 2020-01-31 16:30 | NUR ---
AMBULANCE CALLED AT THIS TIME FOR TRANSPORT
--- NOTE | 2020-01-31 17:04 | NUR ---
AMBULANCE HERE FOR PT
--- NOTE | 2020-01-31 19:45 | MORECARE ---
CASE MANAGEMENT DISCHARGE SUMMARY PATIENT: BIJAN BOWSER UNIT: [id number] ADM DATE: 01/31/20 AGE: 84 : 35 SEX: F ROOM/BED: D.2304 AUTHOR: LUZ,DOC PHYSICIAN: REFERRING PHYSICIAN: MICHELLE GIVENS MD DATE OF SERVICE: 01/31/20 Discharge Plan Patient Name: BIJAN BOWSER Facility: [facility]:[place] : 1935 Planned Disposition: Hospice Home Anticipated Discharge Date: 01/31/20 Discharge Date: 01/31/2020 Expected LOS: 1 Initial Reviewer: [email or web address] Initial Review Date: 01/31/2020 Generated: 01/31/20 8:45 pm Comments DCP- Discharge Planning Updated by [email or web address]: Marjan Hidalgo on 01/31/20 6:[address] Late entry for 13:38: CM met Elida from [facility] in ICU. Elida informed CM that patient's current status has not changed from her prior level of function prior to hospitalization. Elida is going to meet with [facility] staff at [facility] and call CM back with recommendations for discharge plan. ~15:35 Elida notified CM that [facility] staff are in agreement that they can meet patient's needs and she may return to her [facility] at the [facility] with [facility] today. CM called patient's daughter, Zuleika of DCP. Zuleika verbalized understanding and satisfaction with DCP. NICOLE spoke with Constance in ICU and notified of plan: [facility] employee will come to the ICU now. When she arrives nurse to call ambulance for transport home. [facility] employee will follow ambulance to patient's home so she can get patient set up at home. Hospice will resume services at [facility] this afternoon. Constance verbalized understanding. DCP- Discharge Planning Updated by [email or web address]: Marjan Hidalgo on 01/31/20 11:[address] 11:50 CM received call back from Mirella at [facility] stating they will resume Hospice services at the patient's [facility] on [address]. [facility] can proceed with discharge to home and hospice nurse will see patient later this afternoon. NICOLE called patient's sister, Zuleika and notified her of discharge plans. Zuleika is in agreement with discharge plan. CM called [facility] and spoke with Jaret at [facility]. Jaret informed CM to call Lucina Cuello, cook supervisor, at [phone]. CM called and left message for Lucina to return CM call. CM called and spoke with Erma at [phone]. Erma informed CM that I needed to call Jaret to coordinate transportation back to [facility]. CM informed Erma that Jaret instructed CM to call Lucina Cuello, cook supervisor or Mrs. Gracia at [phone]. Erma informed CM that Lucina is out on medical leave and Mrs. Gracia is unavailable. Erma voiced concern about facilities ability to meet patient needs at [facility], but states she is not over patient's care. States she will have someone call CM back about discharge plan and transportation. CM called Mirella back at [facility] and notified her about statement made by Erma regarding meeting patient needs. CM requested hospice come to hospital and evaluate patient for GIP hospice prior to discharge to [facility]. Mirella will call [facility] and call CM back. DCP- Discharge Planning Updated by [email or web address]: Marjan Hidalgo on 01/31/20 10:[address] Patient Name: BIJAN BOWSER Admission Status: ER Accout number: [id number] Admission Date: 01-31-2020 : 1935 Admission Diagnosis: Attending: MICHELLE HUYNH Current LOS: 1 Anticipated DC Date: 01-31-2020 Planned Disposition: Hospice Home Primary Insurance: MEDICARE A & B Discharge Planning Comments: 08:26 CM received call from ICU nurse, Aggie, stating Dr. Givens spoke with patient's sister, Zuleika Segovia, and wants Hospice Eval. [facility] patient currently gets Hospice at home from an agency. 09:10 CM called Zuleika Segovia to discuss Hospice orders. Zuleika states the patient makes her own decisions and she could not make that decision for the patient. [facility] patient does currently get hospice at home. [facility] patient gets services from [facility] and has caregivers in the home. CM spoke with Constance in ICU about this. 09:40 CM received follow up call from Constance in ICU stating patient has chosen [facility], and that is the agency she is currently enrolled with. 10:15 CM called [facility] ([facility]). Spoke with Mirella about referral. Reviewed records with Mirella and faxed records as requested. Mirella states they will come to hospital to evaluate patient. States patient will have to understand that she can't come in and out of the hospital with hospice services and if they feel like patient will not adhere to this they will refer patient to home health services. But states they will let CM know if they are going to accept patient back into hospice or not after their eval. CM notified Crystal in ICU on status of referral. Discussed care in IDT meeting. CM will continue to follow and assist as needed with DCP needs. JUSTIN explained and signed for [facility]. DC IMM explained and signed. Senior Business Broker: Marjan Hidalgo Last DP export: 01/31/20 11:33 am Patient Name: BIJAN BOWSER Page [id number] at 194 All edits/amendments must be made on the electronic document DICTATION DATE: 01/31/201944 DIETETICS DIRECTOR: HASEEB 01/31/201944 RPT#: [id number] DC DATE:01/31/20 STATUS: DIS IN [facility] [address] [place] [address] END OF REPORT
--- NOTE | 2020-01-31 19:59 | MORECARE ---
CASE MANAGEMENT DISCHARGE SUMMARY PATIENT: BIJAN BOWSER UNIT: [id number] ADM DATE: 01/31/20 AGE: 84 : 35 SEX: F ROOM/BED: D.2304 AUTHOR: LUZ,DOC PHYSICIAN: REFERRING PHYSICIAN: MICHELLE GIVENS MD DATE OF SERVICE: 01/31/20 Discharge Plan Patient Name: BIJAN BOWSER Facility: [facility]:[place] : 1935 Planned Disposition: Hospice Home Anticipated Discharge Date: 01/31/20 Discharge Date: 01/31/2020 Expected LOS: 1 Initial Reviewer: [email or web address] Initial Review Date: 01/31/2020 Generated: 01/31/20 8:58 pm Comments DCP- Discharge Planning Updated by [email or web address]: Marjan Hidalgo on 01/31/20 6:[address] Late entry for 13:38: CM met Elida from [facility] in ICU. Elida informed CM that patient's current status has not changed from her prior level of function prior to hospitalization. Elida is going to meet with [facility] staff at [facility] and call CM back with recommendations for discharge plan. ~15:35 Elida notified CM that [facility] staff are in agreement that they can meet patient's needs and she may return to her home [facility] the [facility] with [facility] today. CM called patient's daughter, Zuleika of DCP. Zuleika verbalized understanding and satisfaction with DCP. NICOLE spoke with Constance in ICU and notified of plan: [facility] employee will come to the ICU now. When she arrives nurse to call ambulance for transport home. [facility] employee will follow ambulance to patient's home so she can get patient set up at home. Hospice will resume services at [facility] this afternoon. Constance verbalized understanding. DCP- Discharge Planning Updated by [email or web address]: Marjan Hidalgo on 01/31/20 11:[address] 11:50 CM received call back from Mirella at [facility] stating they will resume Hospice services at the patient's [facility] on [address]. [facility] can proceed with discharge to home and hospice nurse will see patient later this afternoon. NICOLE called patient's sister, Zuleika and notified her of discharge plans. Zuleika is in agreement with discharge plan. CM called [facility] and spoke with Jaret at [facility]. Jaret informed CM to call Lucina Cuello, supervisor remelt, at [phone]. CM called and left message for Lucina to return CM call. CM called and spoke with Erma at [phone]. Erma informed CM that I needed to call Jaret to coordinate transportation back to [facility]. CM informed Erma that Jaret instructed CM to call Lucina Cuello, supervisor remelt or Mrs. Gracia at [phone]. Erma informed CM that Lucina is out on medical leave and Mrs. Gracia is unavailable. Erma voiced concern about facilities ability to meet patient needs at [facility], but states she is not over patient's care. States she will have someone call CM back about discharge plan and transportation. CM called Mirella back at [facility] and notified her about statement made by Erma regarding meeting patient needs. CM requested hospice come to hospital and evaluate patient for [facility] hospice prior to discharge to [facility]. Mirella will call [facility] and call CM back. DCP- Discharge Planning Updated by [email or web address]: Marjan Hidalgo on 01/31/20 10:[address] Patient Name: BIJAN BOWSER Admission Status: ER Accout number: [id number] Admission Date: 01-31-2020 : 1935 Admission Diagnosis: Attending: MICHELLE HUYNH Current LOS: 1 Anticipated DC Date: 01-31-2020 Planned Disposition: Hospice Home Primary Insurance: MEDICARE A & B Discharge Planning Comments: 08:26 CM received call from ICU nurse, Aggie, stating Dr. Givens spoke with patient's sister, Zuleika Segovia, and wants Hospice Eval. [facility] patient currently gets Hospice at home from an agency. 09:10 CM called Zuleika Segovia to discuss Hospice orders. Zuleika states the patient makes her own decisions and she could not make that decision for the patient. [facility] patient does currently get hospice at home. [facility] patient gets services from [facility] and has caregivers in the home. CM spoke with Constance in ICU about this. 09:40 CM received follow up call from Constance in ICU stating patient has chosen [facility], and that is the agency she is currently enrolled with. 10:15 CM called [facility] ([facility] Spoke with Mirella about referral. Reviewed records with Mirella and faxed records as requested. Mirella states they will come to hospital to evaluate patient. States patient will have to understand that she can't come in and out of the hospital with hospice services and if they feel like patient will not adhere to this they will refer patient to home health services. But states they will let CM know if they are going to accept patient back into hospice or not after their eval. CM notified Crystal in ICU on status of referral. Discussed care in IDT meeting. CM will continue to follow and assist as needed with DCP needs. JUSTIN explained and signed for [facility]. DC IMM explained and signed. Director Of Regional Sales: Marjan Hidalgo Last DP export: 01/31/20 6:45 pm Patient Name: BIJAN BOWSER Page [id number] at 1958 All edits/amendments must be made on the electronic document DICTATION DATE: 01/31/201957 WEIGHT AND TEST BAR CLERK: HASEEB 01/31/201957 RPT#: [id number] DC DATE:01/31/20 STATUS: DIS IN [id number] [place] [address] END OF REPORT
== END 2020-01-31 17:14 | disposition hospice, inpatient (51) | DRG 378 ==
LOC: D.ER 02:06 → D.ICU 02:41
PROVIDERS: Family Medicine; ADMIT Family Medicine Adult Medicine; ATTEND Family Medicine Adult Medicine
DX: K92.2 Gastrointestinal hemorrhage, unspecified (principal); I42.9 Cardiomyopathy, unspecified; I44.2 Atrioventricular block, complete; I47.2 Ventricular tachycardia; K21.9 Gastro-esophageal reflux disease without esophagitis; I10 Essential (primary) hypertension; Z66 Do not resuscitate; R40.2243 Coma scale, best verbal response, confused conversation, at hospital admission; R40.2363 Coma scale, best motor response, obeys commands, at hospital admission; R40.2143 Coma scale, eyes open, spontaneous, at hospital admission